=== PATIENT | female | born 1945 | race Caucasian/White ===

== ENCOUNTER → 2016-05-29 | Outpatient (CLI) | payer MEDICARE, BC, OTHER ==
[~2016-05-29] MED LIST: /PANT40TA OR; ASPI81TA3 OR; AVAP75TA PO; BENA25CA2 PO; CALCCHW12 OR; CARB1TAB20 PO; COLA100C2 OR; FERR325T3 PO; FLON0.05; FURO20TA2 PO; KLOR10TA OR; LASI20TA OR; MULTIVIT PO; OMEP40CA2 PO; VIT D 2000 PO; VITA100027 OR; XANA0.5T PO
--- NOTE | 2016-05-29 22:13 | REP ---
MR THORACIC SPINE WITHOUT CONTRAST: HISTORY: Back pain. A small right paracentral disc protrusion is present at the T3-4 level. There is minimal effacement of the thecal sac without spinal cord compression. The T3 neural foramina are patent. A small central disc extrusion is present at the T6-7 level. There is minimal deformity of the spinal cord. The T6 neural foramina are patent. A mild size central disc extrusion is present at the T7-8 level. There is superior migration of disc material. There is minimal deformity of the spinal cord. The T7 neural foramina are patent. There is no other disc bulge or herniation. The remaining neural foramina are patent. The spinal cord is normal in signal intensity. There is no intradural extramedullary lesion. Normal signal intensity is present at the thoracic vertebral bodies. Anterior osteophytes are present throughout the thoracic spine. IMPRESSION: 1. Small disc protrusion at the T3-4 level without spinal cord compression. 2. Small disc extrusion at the T6-7 level with minimal deformity of the spinal cord. 3. Mild size central disc extrusion at the T7-8 level with minimal deformity of the spinal cord. Signed by Anrde Grant MD 05/30/2016 08:54 A
== END | disposition home or self-care (01) ==
LOC: M RAD 13:17
PROVIDERS: ATTEND Physician Assistant Medical
DX: M54.9 Dorsalgia, unspecified (principal); M51.04 Intervertebral disc disorders with myelopathy, thoracic region

== ENCOUNTER 2016-07-23 02:42 | Emergency (ER) | payer MEDICARE, BC, OTHER ==
[2016-07-23] MEDS ORDERED: dexameTHASONE 20 MG/5 ML VIAL (J1100) As Ordered ONE (03:15)
[2016-07-23] MEDS ORDERED: KETOROLAC 30 MG/ML VIAL (J1885) As Ordered ONE (03:16)
[2016-07-23] MEDS ORDERED: IPRATROPIUM 0.5MG/ALBUTEROL 2.5MG INH SOL UD 3ML (DUONEB)(J7620) As Ordered ONE (03:19)
--- NOTE | 2016-07-23 05:29 | EDDOCDS ---
Nurse's Notes [facility] Name: Kristan Sierra Age: 70 yrs Sex: Female : 1945 Arrival Date: 07/23/2016 Time: 02:42 Bed 12 Private MD: Diagnosis: Acute upper respiratory infection, unspecified-Viral;Chondrocostal junction syndrome [Tietze] Presentation: 07/23 02:48 Presenting complaint: Patient states: she has had ongoing issues with back and chest cz discomfort. pain worsening since last night around 1800 pt states it hurts to take a deep breath. pt and spouse relate that when she eats she swells up putting pressure on her chest. Aspirin was not taken prior to arrival. Adult Sepsis Screening: The patient does not have new or worsening altered mentation. Patient's respiratory rate is less than 22. Systolic blood pressure is greater than 100. Patient has a qSOFA score of 0- Negative Sepsis Screen. Suicide/Homicide risk assessment- the patient denies having any suicidal and/or homicidal ideations and does not present with any other emotional, behavioral or mental health complaints. Status: Patient is not a financial services sales representative or dependent. Transition of care: patient was not received from another setting of care. 02:48 Acuity: CHACE Level 2 cz 02:48 Method Of Arrival: Wheelchair cz Triage Assessment: 02:52 General: Appears uncomfortable. Pain: Location: back and chest Pain currently is 8 out cz of 10 on a pain scale. Historical: - Allergies: No known drug Allergies; - Home Meds: 1. unable to verify - PMHx: back pain; Colitis; Asthma; CHF; - PSHx: eye surgery; Cholecystectomy; Gastric Bypass; Hysterectomy; - Social history: Smoking status: Patient states former smoker of tobacco. No barriers to communication noted, The patient speaks fluent Georgian, Speaks appropriately for age. - Family history: Not pertinent. - : Unable to assess if pt is on anticoagulants. Unable to Verify Home Med List with the patient / caregiver. - Exposure Risk Screening:: None identified. Screenin:08 Screening information is obtained from the patient. Fall risk: No risks identified. mlc Assistance ADL's: requires no assistance with activities of daily living. Abuse/DV Screen: The patient / caregiver reports he/she is: not in a situation that causes fear, pain or injury. Nutritional screening: No deficits noted. Advance Directives: Currently, there is a health care proxy, Nadine Brantley, daughter. There is an active DNR order but there is no copy available at this time. There is an active Power of Mechanical Developer [employer]ver, Nadine Brantley, daughter. home support is adequate. Assessment: 03:08 General: Appears in no apparent distress, uncomfortable, Behavior is anxious, mlc cooperative. Pain: Location: low back area and left breast Pain currently is 8 out of 10 on a pain scale. Neurological: Level of Consciousness is awake, alert, Oriented to person, place, time. Cardiovascular: Capillary refill < 3 seconds Heart tones S1 S2 present Rhythm is regular. Respiratory: Airway is patent Respiratory effort is even, labored, Respiratory pattern is regular, Breath sounds with wheezes expiratory in left posterior lower lobe and right posterior lower lobe Reports shortness of breath at rest. Derm: Skin is pink, warm & dry. 03:24 GI: Reports gaseousness, pt belching as if she might vomit but patient states she does mlc this all the time and that she does not vomit. 04:30 General: Appears in no apparent distress, comfortable, Behavior is appropriate for age, js15 cooperative. Neurological: Level of Consciousness is awake, alert, obeys commands, Oriented to person, place, time. Respiratory: Airway is patent Respiratory effort is even, unlabored, Respiratory pattern is regular, symmetrical. Derm: Skin is pink, warm & dry. 05:27 Reassessment: Patient appears in no apparent distress at this time. Pt ambulated js15 independently to restroom and back to bed; resting on stretcher, awake and alert; respirations even and unlabored; skin pink, warm, dry; cardiac rhythm is NSR. Vital Signs: 02:52 BP 141 / 80; Pulse 80; Resp 16; Pulse Ox 96% on R/A; Weight 77.11 kg; Height 5 ft. 3 cz in. (160.02 cm); 02:53 BP 141 / 80; Pulse 78; Resp 20; Temp 98.1; Pulse Ox 96% on R/A; Pain 8/10; mlc 05:13 BP 128 / 56 RA Supine (auto/reg); Pulse 89 MON; Resp 18 S; Temp 98.8(TE); Pulse Ox 93% cln on R/A; Pain 5/10; 02:52 Body Mass Index 30.11 (77.11 kg, 160.02 cm) Vitals: 02:52 Log In Time: July 23, 2016 at 02:53. ED Course: 02:43 Patient visited by Kelli Bourgeois Reg. hs2 02:43 Patient moved to Waiting hs2 02:47 Danelle Harmon RN is Primary Nurse. cz 02:47 Yogesh De Jesus DO is Attending Physician. cs11 02:47 Patient visited by Yogesh De Jesus DO. cs11 02:47 Patient moved to cz 02:50 Triage Initiated cz 03:02 Pt greeted and oriented to ED. Patient advised of names of staff involved in care, mikael location of call caball[place], wait times and NPO status. Accompanied by Significant Other, Patient has correct armband on for positive identification. Placed in gown. Bed in low position. Call light in reach. Side rails up X2. assistant men's soccer coach on. Pulse ox on. NIBP on. 03:02 EKG done. (by ED staff). Reviewed by Yogesh De Jesus DO. mikael 03:04 Inserted saline lock: 18 gauge in right antecubital area and blood collected. [facility] [place] tolerated the procedure well. 03:07 [facility] Payment Agreement was scanned into [employer] and attached to record. [facility] 03:10 Patient visited by Danelle Harmon RN. [facility] 03:24 Patient visited by Danelle Harmon RN. [facility] 04:00 Primary Nurse role handed off by Danelle Harmon RN mikael 04:01 Patient moved to Radiology tmb 04:16 Patient moved to tmb 04:30 The patient / caregiver is instructed regarding the plan of care and ED course. js15 04:35 Patient visited by Rossana Burton RN. js15 04:35 -Influenza A&B Rapid Antigen - Nose Sent. js15 05:14 Patient visited by Georgette Son PCA. cln 05:27 Discontinued IV lock intact, bleeding controlled, pressure dressing applied, No js15 redness/swelling at site. No procedures done that require assistance. Administered Medications: 03:05 Drug: Albuterol-Ipratropium 1 neb [ipratropium-albuterol 0.5 mg-3 mg(2.5 mg base)/3 mL nk1 nebulization soln (1 neb)] Route: Nebulizer; 03:18 Drug: Albuterol-Ipratropium 1 neb [ipratropium-albuterol 0.5 mg-3 mg(2.5 mg base)/3 mL nk1 nebulization soln (1 neb)] Route: Nebulizer; 03:36 Follow up: Response: Nebulizer completed nk1 03:55 Follow up: Response: Nebulizer completed nk1 03:23 Drug: ketorolac 30 mg [ketorolac 30 mg/mL (1 mL) injection solution (1 mL)] Route: IVP; mlc Site: right antecubital; 03:23 Drug: Dexamethasone 12 mg [dexamethasone 4 mg/mL injection solution] Route: IV; Rate: mlc bolus; Site: right antecubital; RT: 03:25 Initial Med Neb Given as ordered Patient was instructed and evaluated on procedure nk1 Patient tolerated procedure well without adverse effect. Respiratory: Airway is patent Respiratory effort is even, unlabored, Respiratory pattern is regular symmetrical, Breath sounds are clear bilaterally. Breath sounds are diminished bilaterally. in left posterior lower lobe and right posterior lower lobe Reports cough that is productive labored breathing with pain associated with deep breathing. Patient complains of generalized chest tightness. 03:40 Subsequent Med Neb Given as ordered Patient tolerated procedure well without adverse nk1 effect. 03:54 Respiratory: Breath sounds are clear bilaterally. Reports no change with second neb, nk1 declined third neb treatment. Order Results: Lab Order: -Influenza A&B Rapid Antigen - Nose; SPEC'M 07/23/16 04:34 Test: INFLUENZA A RAPID SCR by ICA; Value: INFLUENZA A RESULTS NEGATIVE; Status: F Test: INFLUENZA A RAPID SCR by ICA; Value: Comments:; Status: F Test: INFLUENZA B RAPID SCR by ICA; Value: INFLUENZA B RESULTS NEGATIVE; Status: F Test Note: ; The Influenza test is a direct rapid immunoassay for the qualitative detection of Influenza viral antigen. Cell culture (Viral Culture) testing should be considered to confirm NEGATIVE results and to assist in detecting other viruses that can provide similar clinical symptoms. Please contact the lab within 24 hours ([phone]) if confirmatory testing is desired. Outcome: 05:07 Discharge ordered by Provider. cs11 05:27 Discharge Assessment: Patient awake, alert and oriented x 3. No cognitive and/or js15 functional deficits noted. Patient verbalized understanding of disposition instructions. The following High Risk Discharge criteria are identified: None. Discharged to home ambulatory, with significant other. Condition: stable. Discharge instructions given to patient, Instructed on discharge instructions, follow up and referral plans. Demonstrated understanding of instructions, Pt was receptive of discharge instructions/ teaching. Property sent home with patient. 05:28 Discharge Assessment: patient administered narcotics - no. No special radiology studies js15 were completed. 05:29 Patient left the ED. js15 Signatures: Griffin Gongora, RN RN cz Mulu Obrien,RT RT nk1 Ching Fuentes, ORCHID HAND ORCHID HAND mikael Yogesh De Jesus, DO DO cs11 Ranulfo Hunter tmb Danelle Harmon,RN RN mlc Saranya Kingsley JuliaRN RN js15 Kelli Bourgeois, Reg Reg hs2 Georgette Son, ORCHID HAND ORCHID HAND cln Corrections: (The following items were deleted from the chart) 02:57 02:48 Presenting complaint: Patient states: she has had ongoing issues with back and cz chest discomfort. pain worsenting since last night around 1800 pt states it hurts to take a deep breath. pt and spouse relate that when she eats she swells up putting pressure on her chesty cz 03:53 03:36 Respiratory: Breath sounds are clear bilaterally. No significant change in breath nk1 sounds. Patient states she feels no change. Sates she feels a localized pain over left anterior chest worse with deep breathing. nk1 03:54 03:05 Subsequent Med Neb Given as ordered Patient tolerated procedure well without nk1 adverse effect nk1 MTDD
--- NOTE | 2016-07-23 05:29 | EDDOCDS ---
Physician Documentation [facility] Name: Kristan Sierra Age: 70 yrs Sex: Female : 1945 Arrival Date: 07/23/2016 Time: 02:42 Bed 12 Private MD: Disposition: 07/23/16 05:07 Discharged to Home/Self Care. Impression: Acute upper respiratory infection, unspecified - Viral, Chondrocostal junction syndrome [Tietze]. - Condition is Stable. - Discharge Instructions: Costochondritis, [id number]. - Prescriptions for Prednisone 20 mg Oral Tablet - take 2 tablets by ORAL route once daily for 4 days; 8 tablet. - Medication Reconciliation, Local Pharmacy Hours form. - Follow up: Private Physician; When: Call to arrange an appointment; Reason: Recheck today's complaints. - Problem is new. - Symptoms have improved. Historical: - Allergies: No known drug Allergies; - Home Meds: 1. unable to verify - PMHx: back pain; Colitis; Asthma; CHF; - PSHx: eye surgery; Cholecystectomy; Gastric Bypass; Hysterectomy; - Social history: Smoking status: Patient states former smoker of tobacco. No barriers to communication noted, The patient speaks fluent Malay, Speaks appropriately for age. - Family history: Not pertinent. - : Unable to assess if pt is on anticoagulants. Unable to Verify Home Med List with the patient / caregiver. - Exposure Risk Screening:: None identified. Vital Signs: 07/23 02:52 BP 141 / 80; Pulse 80; Resp 16; Pulse Ox 96% on R/A; Weight 77.11 kg / 170 lbs; Height cz 5 ft. 3 in. (160.02 cm); 02:53 BP 141 / 80; Pulse 78; Resp 20; Temp 98.1; Pulse Ox 96% on R/A; Pain 8/10; mlc 05:13 BP 128 / 56 RA Supine (auto/reg); Pulse 89 MON; Resp 18 S; Temp 98.8(TE); Pulse Ox 93% cln on R/A; Pain 5/10; 02:52 Body Mass Index 30.11 (77.11 kg, 160.02 cm) cz MDM: 02:54 ECG WITH READING ER PHYS+CARDIAG ordered. EDMS 03:03 Financial registration complete. [facility] 03:07 [facility] Payment Agreement was scanned into [employer] and attached to record. [facility] 03:14 ketorolac 30 mg IVP once ordered. 11 03:14 Dexamethasone 12 mg IV at bolus once ordered. cs11 03:14 Albuterol-Ipratropium 1 neb Nebulizer every 20 minutes x3 ordered. cs11 03:14 Call Respiratory ordered. cs11 03:15 Chest, 2 View (pa\E\lat) Ordered. EDMS 03:15 Call Respiratory complete. ko2 03:58 -Influenza A&B Rapid Antigen - Nose Ordered. EDMS Administered Medications: 03:05 Drug: Albuterol-Ipratropium 1 neb [ipratropium-albuterol 0.5 mg-3 mg(2.5 mg base)/3 mL nk1 nebulization soln (1 neb)] Route: Nebulizer; 03:18 Drug: Albuterol-Ipratropium 1 neb [ipratropium-albuterol 0.5 mg-3 mg(2.5 mg base)/3 mL nk1 nebulization soln (1 neb)] Route: Nebulizer; 03:36 Follow up: Response: Nebulizer completed nk1 03:55 Follow up: Response: Nebulizer completed nk1 03:23 Drug: ketorolac 30 mg [ketorolac 30 mg/mL (1 mL) injection solution (1 mL)] Route: IVP; mlc Site: right antecubital; 03:23 Drug: Dexamethasone 12 mg [dexamethasone 4 mg/mL injection solution] Route: IV; Rate: mlc bolus; Site: right antecubital; Signatures: Dispatcher [employer] EDNH Griffin Gongora RN RN cz Schiff, Craig, DO DO cs11 Ashlie Villalta RN RN ko2 Saranya Kingsley [facility] Rossana Burton RN RN js15 Mulu Obrien nk1 Danelle Harmon RN mlc The chart was reviewed and I authenticate all verbal orders and agree with the evaluation and treatment provided.Attachments: 03:07 [facility] Payment Agreement [facility] MTDD
--- NOTE | 2016-07-23 10:36 | REP ---
CHEST X-RAY: Two views. HISTORY: Cough. FINDINGS: EKG monitoring electrodes overlie the chest. There are clips in the right upper quadrant. Pleural angles are sharp. The lungs are well inflated and clear. Heart size is normal. There are degenerative changes in the thoracic spine. Pulmonary vasculature is not increased. IMPRESSION: No active disease. Signed by Mark Crook MD 07/23/2016 01:59 P
--- NOTE | 2016-07-24 10:10 | ECGEPIP ---
Stationary ECG Study [facility] - ED Test Date: 2016-07-23 Pat Name: CINTHYA RIZO Department: Room: - Gender: F Parts Counter Specialist: GarciaB: 1945 Requested By: FANY ZHONG Order Number: [id number] Reading MD: Angus Ruffin Measurements Intervals [place] Rate: 77 P: 75 SC: 224 QRS: -21 QRSD: 91 T: 3 QT: 398 QTc: 451 Interpretive Statements SINUS RHYTHM WITH FIRST DEGREE AV BLOCK POSSIBLE ANTERIOR MYOCARDIAL INFARCTION, OF INDETERMINATE AGE NO PRIORS Electronically Signed On 07-24-2016 10:09:45 EST by Angus Ruffin
--- NOTE | 2016-07-25 06:29 | EDDOCDS ---
Physician Documentation [facility] Name: Kristan Sierra Age: 70 yrs Sex: Female : 1945 Arrival Date: 07/23/2016 Time: 02:42 Bed 12 Private MD: Disposition: 07/23/16 05:07 Discharged to Home/Self Care. Impression: Acute upper respiratory infection, unspecified - Viral, Chondrocostal junction syndrome [Tietze]. - Condition is Stable. - Discharge Instructions: Costochondritis, [id number]. - Prescriptions for Prednisone 20 mg Oral Tablet - take 2 tablets by ORAL route once daily for 4 days; 8 tablet. - Medication Reconciliation, Local Pharmacy Hours form. - Follow up: Private Physician; When: Call to arrange an appointment; Reason: Recheck today's complaints. - Problem is new. - Symptoms have improved. Historical: - Allergies: No known drug Allergies; - Home Meds: 1. unable to verify - PMHx: back pain; Colitis; Asthma; CHF; - PSHx: eye surgery; Cholecystectomy; Gastric Bypass; Hysterectomy; - Social history: Smoking status: Patient states former smoker of tobacco. No barriers to communication noted, The patient speaks fluent Spanish, Speaks appropriately for age. - Family history: Not pertinent. - : Unable to assess if pt is on anticoagulants. Unable to Verify Home Med List with the patient / caregiver. - Exposure Risk Screening:: None identified. Vital Signs: 07/23 02:52 BP 141 / 80; Pulse 80; Resp 16; Pulse Ox 96% on R/A; Weight 77.11 kg / 170 lbs; Height cz 5 ft. 3 in. (160.02 cm); 02:53 BP 141 / 80; Pulse 78; Resp 20; Temp 98.1; Pulse Ox 96% on R/A; Pain 8/10; mlc 05:13 BP 128 / 56 RA Supine (auto/reg); Pulse 89 MON; Resp 18 S; Temp 98.8(TE); Pulse Ox 93% cln on R/A; Pain 5/10; 02:52 Body Mass Index 30.11 (77.11 kg, 160.02 cm) cz MDM: 02:54 ECG WITH READING ER PHYS+CARDIAG ordered. EDMS 03:03 Financial registration complete. [facility] 03:07 [facility] Payment Agreement was scanned into [employer]. and attached to record. [facility] 03:14 ketorolac 30 mg IVP once ordered. 11 03:14 Dexamethasone 12 mg IV at bolus once ordered. cs11 03:14 Albuterol-Ipratropium 1 neb Nebulizer every 20 minutes x3 ordered. cs11 03:14 Call Respiratory ordered. cs11 03:15 Chest, 2 View (pa\E\lat) Ordered. EDMS 03:15 Call Respiratory complete. ko2 03:58 -Influenza A&B Rapid Antigen - Nose Ordered. EDMS Administered Medications: 03:05 Drug: Albuterol-Ipratropium 1 neb [ipratropium-albuterol 0.5 mg-3 mg(2.5 mg base)/3 mL nk1 nebulization soln (1 neb)] Route: Nebulizer; 03:18 Drug: Albuterol-Ipratropium 1 neb [ipratropium-albuterol 0.5 mg-3 mg(2.5 mg base)/3 mL nk1 nebulization soln (1 neb)] Route: Nebulizer; 03:36 Follow up: Response: Nebulizer completed nk1 03:55 Follow up: Response: Nebulizer completed nk1 03:23 Drug: ketorolac 30 mg [ketorolac 30 mg/mL (1 mL) injection solution (1 mL)] Route: IVP; mlc Site: right antecubital; 03:23 Drug: Dexamethasone 12 mg [dexamethasone 4 mg/mL injection solution] Route: IV; Rate: mlc bolus; Site: right antecubital; Signatures: Dispatcher MedHo EDMA Griffin Gongora RN RN cz Schiff, Craig, DO DO cs11 Ashlie Villalta RN RN ko2 Saranya Kingsley [facility] Rossana Burton RN RN js15 Mulu Obrien nk1 Danelle Harmon RN mlc The chart was reviewed and I authenticate all verbal orders and agree with the evaluation and treatment provided.Attachments: 03:07 [facility] Payment Agreement [facility] Chart Complete MTDD
--- NOTE | 2016-07-25 06:29 | EDDOCDS ---
Physician Documentation [facility] Name: Kristan Sierra Age: 70 yrs Sex: Female : 1945 Arrival Date: 07/23/2016 Time: 02:42 Bed 12 Private MD: Disposition: 07/23/16 05:07 Discharged to Home/Self Care. Impression: Acute upper respiratory infection, unspecified - Viral, Chondrocostal junction syndrome [Tietze]. - Condition is Stable. - Discharge Instructions: Costochondritis, [id number]. - Prescriptions for Prednisone 20 mg Oral Tablet - take 2 tablets by ORAL route once daily for 4 days; 8 tablet. - Medication Reconciliation, Local Pharmacy Hours form. - Follow up: Private Physician; When: Call to arrange an appointment; Reason: Recheck today's complaints. - Problem is new. - Symptoms have improved. Historical: - Allergies: No known drug Allergies; - Home Meds: 1. unable to verify - PMHx: back pain; Colitis; Asthma; CHF; - PSHx: eye surgery; Cholecystectomy; Gastric Bypass; Hysterectomy; - Social history: Smoking status: Patient states former smoker of tobacco. No barriers to communication noted, The patient speaks fluent Kyrgyz, Speaks appropriately for age. - Family history: Not pertinent. - : Unable to assess if pt is on anticoagulants. Unable to Verify Home Med List with the patient / caregiver. - Exposure Risk Screening:: None identified. Vital Signs: 07/23 02:52 BP 141 / 80; Pulse 80; Resp 16; Pulse Ox 96% on R/A; Weight 77.11 kg / 170 lbs; Height cz 5 ft. 3 in. (160.02 cm); 02:53 BP 141 / 80; Pulse 78; Resp 20; Temp 98.1; Pulse Ox 96% on R/A; Pain 8/10; mlc 05:13 BP 128 / 56 RA Supine (auto/reg); Pulse 89 MON; Resp 18 S; Temp 98.8(TE); Pulse Ox 93% cln on R/A; Pain 5/10; 02:52 Body Mass Index 30.11 (77.11 kg, 160.02 cm) cz MDM: 02:54 ECG WITH READING ER PHYS+CARDIAG ordered. EDMS 03:03 Financial registration complete. [facility] 03:07 [facility] Payment Agreement was scanned into [employer] and attached to record. [facility] 03:14 ketorolac 30 mg IVP once ordered. 11 03:14 Dexamethasone 12 mg IV at bolus once ordered. cs11 03:14 Albuterol-Ipratropium 1 neb Nebulizer every 20 minutes x3 ordered. cs11 03:14 Call Respiratory ordered. cs11 03:15 Chest, 2 View (pa\E\lat) Ordered. EDMS 03:15 Call Respiratory complete. ko2 03:58 -Influenza A&B Rapid Antigen - Nose Ordered. EDMS Administered Medications: 03:05 Drug: Albuterol-Ipratropium 1 neb [ipratropium-albuterol 0.5 mg-3 mg(2.5 mg base)/3 mL nk1 nebulization soln (1 neb)] Route: Nebulizer; 03:18 Drug: Albuterol-Ipratropium 1 neb [ipratropium-albuterol 0.5 mg-3 mg(2.5 mg base)/3 mL nk1 nebulization soln (1 neb)] Route: Nebulizer; 03:36 Follow up: Response: Nebulizer completed nk1 03:55 Follow up: Response: Nebulizer completed nk1 03:23 Drug: ketorolac 30 mg [ketorolac 30 mg/mL (1 mL) injection solution (1 mL)] Route: IVP; mlc Site: right antecubital; 03:23 Drug: Dexamethasone 12 mg [dexamethasone 4 mg/mL injection solution] Route: IV; Rate: mlc bolus; Site: right antecubital; Signatures: Dispatcher MedHo EDMD Griffin Gongora RN RN cz Schiff, Craig, DO DO cs11 Ashlie Villalta RN RN ko2 Saranya Kingsley [facility] Rossana Burton RN RN js15 Mulu Obrien nk1 Danelle Harmon RN mlc The chart was reviewed and I authenticate all verbal orders and agree with the evaluation and treatment provided.Attachments: 03:07 [facility] Payment Agreement [facility] Chart Complete MTDD
--- NOTE | 2016-07-25 06:30 | EDDOCDS ---
Nurse's Notes [facility] Name: Cinthya Sierra Age: 70 yrs Sex: Female : 1945 Arrival Date: 07/23/2016 Time: 02:42 Bed 12 Private MD: Diagnosis: Acute upper respiratory infection, unspecified-Viral;Chondrocostal junction syndrome [Tietze] Presentation: 07/23 02:48 Presenting complaint: Patient states: she has had ongoing issues with back and chest cz discomfort. pain worsening since last night around 1800 pt states it hurts to take a deep breath. pt and spouse relate that when she eats she swells up putting pressure on her chest. Aspirin was not taken prior to arrival. Adult Sepsis Screening: The patient does not have new or worsening altered mentation. Patient's respiratory rate is less than 22. Systolic blood pressure is greater than 100. Patient has a qSOFA score of 0- Negative Sepsis Screen. Suicide/Homicide risk assessment- the patient denies having any suicidal and/or homicidal ideations and does not present with any other emotional, behavioral or mental health complaints. Status: Patient is not a animal care service worker or dependent. Transition of care: patient was not received from another setting of care. 02:48 Acuity: CHACE Level 2 cz 02:48 Method Of Arrival: Wheelchair cz Triage Assessment: 02:52 General: Appears uncomfortable. Pain: Location: back and chest Pain currently is 8 out cz of 10 on a pain scale. Historical: - Allergies: No known drug Allergies; - Home Meds: 1. unable to verify - PMHx: back pain; Colitis; Asthma; CHF; - PSHx: eye surgery; Cholecystectomy; Gastric Bypass; Hysterectomy; - Social history: Smoking status: Patient states former smoker of tobacco. No barriers to communication noted, The patient speaks fluent Georgian, Speaks appropriately for age. - Family history: Not pertinent. - : Unable to assess if pt is on anticoagulants. Unable to Verify Home Med List with the patient / caregiver. - Exposure Risk Screening:: None identified. Screenin:08 Screening information is obtained from the patient. Fall risk: No risks identified. mlc Assistance ADL's: requires no assistance with activities of daily living. Abuse/DV Screen: The patient / caregiver reports he/she is: not in a situation that causes fear, pain or injury. Nutritional screening: No deficits noted. Advance Directives: Currently, there is a health care proxy, Nadine Brantley, daughter. There is an active DNR order but there is no copy available at this time. There is an active Power of Employee Communications Coordinator, Nadine Brantley, daughter. home support is adequate. Assessment: 03:08 General: Appears in no apparent distress, uncomfortable, Behavior is anxious, mlc cooperative. Pain: Location: low back area and left breast Pain currently is 8 out of 10 on a pain scale. Neurological: Level of Consciousness is awake, alert, Oriented to person, place, time. Cardiovascular: Capillary refill < 3 seconds Heart tones S1 S2 present Rhythm is regular. Respiratory: Airway is patent Respiratory effort is even, labored, Respiratory pattern is regular, Breath sounds with wheezes expiratory in left posterior lower lobe and right posterior lower lobe Reports shortness of breath at rest. Derm: Skin is pink, warm & dry. 03:24 GI: Reports gaseousness, pt belching as if she might vomit but patient states she does mlc this all the time and that she does not vomit. 04:30 General: Appears in no apparent distress, comfortable, Behavior is appropriate for age, js15 cooperative. Neurological: Level of Consciousness is awake, alert, obeys commands, Oriented to person, place, time. Respiratory: Airway is patent Respiratory effort is even, unlabored, Respiratory pattern is regular, symmetrical. Derm: Skin is pink, warm & dry. 05:27 Reassessment: Patient appears in no apparent distress at this time. Pt ambulated js15 independently to restroom and back to bed; resting on stretcher, awake and alert; respirations even and unlabored; skin pink, warm, dry; cardiac rhythm is NSR. Vital Signs: 02:52 BP 141 / 80; Pulse 80; Resp 16; Pulse Ox 96% on R/A; Weight 77.11 kg; Height 5 ft. 3 cz in. (160.02 cm); 02:53 BP 141 / 80; Pulse 78; Resp 20; Temp 98.1; Pulse Ox 96% on R/A; Pain 8/10; mlc 05:13 BP 128 / 56 RA Supine (auto/reg); Pulse 89 MON; Resp 18 S; Temp 98.8(TE); Pulse Ox 93% cln on R/A; Pain 5/10; 02:52 Body Mass Index 30.11 (77.11 kg, 160.02 cm) Vitals: 02:52 Log In Time: July 23, 2016 at 02:53. ED Course: 02:43 Patient visited by Kelli Bourgeois Reg. hs2 02:43 Patient moved to Waiting hs2 02:47 Danelle HarmonRN is Primary Nurse. cz 02:47 Fany Zhong DO is Attending Physician. cs11 02:47 Patient visited by Fany Zhong DO. cs11 02:47 Patient moved to cz 02:50 Triage Initiated cz 03:02 Pt greeted and oriented to ED. Patient advised of names of staff involved in care, mikael location of call [place], wait times and NPO status. Accompanied by Significant Other, Patient has correct armband on for positive identification. Placed in gown. Bed in low position. Call light in reach. Side rails up X2. monitor tech on. Pulse ox on. NIBP on. 03:02 EKG done. (by ED staff). Reviewed by Fany Zhong DO. mikael 03:04 Inserted saline lock: 18 gauge in right antecubital area and blood collected. The [facility] patient tolerated the procedure well. 03:07 [facility] Payment Agreement was scanned into [employer] and attached to record. [facility] 03:10 Patient visited by Danelle Harmon RN. [facility] 03:24 Patient visited by Danelle Harmon RN. [facility] 04:00 Primary Nurse role handed off by Danelle Harmon RN mikael 04:01 Patient moved to Radiology tmb 04:16 Patient moved to tmb 04:30 The patient / caregiver is instructed regarding the plan of care and ED course. js15 04:35 Patient visited by Rossana Burton,ZEHRA. js15 04:35 -Influenza A&B Rapid Antigen - Nose Sent. js15 05:14 Patient visited by Georgette Son PCA. cln 05:27 Discontinued IV lock intact, bleeding controlled, pressure dressing applied, No js15 redness/swelling at site. No procedures done that require assistance. 10:43 Chest, 2 View (pa\E\lat) Returned. EDMS 07/24 10:45 EKG-ADULT Returned. EDMS Administered Medications: 07/23 03:05 Drug: Albuterol-Ipratropium 1 neb [ipratropium-albuterol 0.5 mg-3 mg(2.5 mg base)/3 mL nk1 nebulization soln (1 neb)] Route: Nebulizer; 03:18 Drug: Albuterol-Ipratropium 1 neb [ipratropium-albuterol 0.5 mg-3 mg(2.5 mg base)/3 mL nk1 nebulization soln (1 neb)] Route: Nebulizer; 03:36 Follow up: Response: Nebulizer completed nk1 03:55 Follow up: Response: Nebulizer completed nk1 03:23 Drug: ketorolac 30 mg [ketorolac 30 mg/mL (1 mL) injection solution (1 mL)] Route: IVP; mlc Site: right antecubital; 03:23 Drug: Dexamethasone 12 mg [dexamethasone 4 mg/mL injection solution] Route: IV; Rate: mlc bolus; Site: right antecubital; RT: 03:25 Initial Med Neb Given as ordered Patient was instructed and evaluated on procedure nk1 Patient tolerated procedure well without adverse effect. Respiratory: Airway is patent Respiratory effort is even, unlabored, Respiratory pattern is regular symmetrical, Breath sounds are clear bilaterally. Breath sounds are diminished bilaterally. in left posterior lower lobe and right posterior lower lobe Reports cough that is productive labored breathing with pain associated with deep breathing. Patient complains of generalized chest tightness. 03:40 Subsequent Med Neb Given as ordered Patient tolerated procedure well without adverse nk1 effect. 03:54 Respiratory: Breath sounds are clear bilaterally. Reports no change with second neb, nk1 declined third neb treatment. Order Results: Lab Order: -Influenza A&B Rapid Antigen - Nose; SPEC'M 07/23/16 04:34 Test: INFLUENZA A RAPID SCR by ICA; Value: INFLUENZA A RESULTS NEGATIVE; Status: F Test: INFLUENZA A RAPID SCR by ICA; Value: Comments:; Status: F Test: INFLUENZA B RAPID SCR by ICA; Value: INFLUENZA B RESULTS NEGATIVE; Status: F Test Note: ; The Influenza test is a direct rapid immunoassay for the qualitative detection of Influenza viral antigen. Cell culture (Viral Culture) testing should be considered to confirm NEGATIVE results and to assist in detecting other viruses that can provide similar clinical symptoms. Please contact the lab within 24 hours ([phone]) if confirmatory testing is desired. Radiology Order: EKG-ADULT Test: EKG-ADULT REASON FOR EXAMINATION: Chest Pain; Stationary ECG Study; [facility] - ED; ; Test Date: 2016-07-23; Pat Name: CINTHYA SIERRA Department:; Room: -; Gender: F Buggy Ladle Tender: tonya; : 1945 Requested By: FANY ZHONG; Order Number: [id number] Reading MD: Angus Ruffin; Measurements; Intervals [place]; Rate: 77 P: 75; IN: 224 QRS: -21; QRSD: 91 T: 3; QT: 398; QTc: 451; Interpretive Statements; SINUS RHYTHM WITH FIRST DEGREE AV BLOCK; POSSIBLE ANTERIOR MYOCARDIAL INFARCTION, OF INDETERMINATE AGE; NO PRIORS; Electronically Signed On 07-24-2016 10:09:45 EST by Angus Ruffin; Radiology Order: Chest, 2 View (pa\E\lat) Test: Chest, 2 View (pa\E\lat) REASON FOR EXAMINATION: Cough; CHEST X-RAY: Two views.; ; HISTORY: Cough.; ; FINDINGS: EKG monitoring electrodes overlie the chest. There are clips in the; right upper quadrant. Pleural angles are sharp. The lungs are well inflated and; clear. Heart size is normal. There are degenerative changes in the thoracic; spine. Pulmonary vasculature is not increased.; ; IMPRESSION: No active disease.; ; ; Signed by; Mark Crook MD 07/23/2016 01:59 P; Outcome: 05:07 Discharge ordered by Provider. cs11 05:27 Discharge Assessment: Patient awake, alert and oriented x 3. No cognitive and/or js15 functional deficits noted. Patient verbalized understanding of disposition instructions. The following High Risk Discharge criteria are identified: None. Discharged to home ambulatory, with significant other. Condition: stable. Discharge instructions given to patient, Instructed on discharge instructions, follow up and referral plans. Demonstrated understanding of instructions, Pt was receptive of discharge instructions/ teaching. Property sent home with patient. 05:28 Discharge Assessment: patient administered narcotics - no. No special radiology studies js15 were completed. 05:29 Patient left the ED. js15 Signatures: Dispatcher [employer] EDMS Griffin Gongora, ZEHRA RN cz Mulu Obrien,RT RT nk1 Ching Fuentes, INTERLOCKING MACHINE OPERATOR INTERLOCKING MACHINE OPERATOR Fany Angulo DO DO cs11 Ranulfo Hunter Mandy,RN RN Saranya Parikh Rossana Sotelo RN RN js15 Kelli Bourgeois, Reg Reg hs2 Georgette Son, INTERLOCKING MACHINE OPERATOR INTERLOCKING MACHINE OPERATOR cln Corrections: (The following items were deleted from the chart) 02:57 02:48 Presenting complaint: Patient states: she has had ongoing issues with back and cz chest discomfort. pain worsenting since last night around 1800 pt states it hurts to take a deep breath. pt and spouse relate that when she eats she swells up putting pressure on her chesty cz 03:53 03:36 Respiratory: Breath sounds are clear bilaterally. No significant change in breath nk1 sounds. Patient states she feels no change. Sates she feels a localized pain over left anterior chest worse with deep breathing. nk1 03:54 03:05 Subsequent Med Neb Given as ordered Patient tolerated procedure well without nk1 adverse effect nk1 Chart Complete MTDD
== END 2016-07-23 05:29 | disposition home or self-care (01) ==
LOC: M ED 02:42
DX: J06.9 Acute upper respiratory infection, unspecified (principal); M94.0 Chondrocostal junction syndrome [Tietze]; J45.909 Unspecified asthma, uncomplicated; M54.9 Dorsalgia, unspecified
CPT/HCPCS: 36415; 71020; 87804; 93005; 94640; 96374; 96375; 99284; J1100; J1885

== ENCOUNTER → 2016-07-25 | Outpatient (REF) | payer MEDICARE, OTHER ==
[2016-07-25 12:04] LABS: BASO % 0.7 % (0.0-1.0); EOS # 0.2 K/mm3 (0.0-0.50); EOS % 2.7 % (0.0-3.0); LARGE UNSTAINED CELL # 0.2 K/mm3 (0.0-0.4); LARGE UNSTAINED CELL % 2.7 % (0.0-4.0); LYMPH # 2.2 K/mm3 (1.5-4.5); LYMPH % 30.7 % (24.0-44.0); MEAN CORPUSCULAR HGB CONC 32.8 g/dl (32.0-36.5); MEAN CORPUSCULAR VOLUME 100.5 fl (80.0-96.0); MONO # 0.5 K/mm3 (0.0-0.8); MONO % 6.3 % (0.0-5.0); NEUTROPHILS # 4.1 K/mm3 (1.8-7.7); NEUTROPHILS % 56.8 % (36.0-66.0); PLATELET COUNT, AUTOMATED 144 k/mm3 (150-450); RED CELL DISTRIBUTION WIDTH 12.2 % (11.5-14.5); WHITE BLOOD COUNT 7.2 K/mm3 (4.0-10.0)
[2016-07-25 12:40] LABS: ERYTHROCYTE SEDIMENTATION RATE 13 mm/hr (0-30)
== END ==
LOC: M SFHCPLAZ 08:04
PROVIDERS: ATTEND Physician Assistant Medical
DX: K52.9 Noninfective gastroenteritis and colitis, unspecified (principal)

== ENCOUNTER → 2016-07-26 | Outpatient (REF) | payer MEDICARE, OTHER | LOC: M SFHCPLAZ 14:07 | PROVIDERS: ATTEND Family Medicine | DX: R19.7 Diarrhea, unspecified (principal) ==

== ENCOUNTER → 2016-09-02 | Outpatient (CLI) | payer MEDICARE, BC ==
[~2016-09-02] MED LIST changes: +AMIT10TA PO; +ASPI1TAB PO; +CALCTAB28 PO; +COLA100C3 PO; +DEXI60CA PO; +MULT1TAB9 PO; +POTA10CA PO; +RECL5INJ2 IV; +TRAM50TA2 PO; +VITA-112 PO; +VITAMIN B 12 PO
--- NOTE | 2016-09-03 10:15 | DEXA ---
AP SPINE L1 - L4 0.995 -1.6 -0.3 LT FEMUR TOTAL 0.807 -1.6 -0.4 RT FEMUR TOTAL 0.803 -1.6 -0.4 TOTAL BODY TOTAL OTHER DUAL FEMUR FRAX* ASSESSMENT Risk factors: Family history of hip fracture, history of adult fracture. 10 year probability of fracture Major osteoporotic fracture 29.4 % Hip fracture 6.3 % COMMENTS: There is low bone density of the spine and hips. The decreased density of the spine does represent a significant change. The decreased density of the left hip does represent a significant change. The decreased density of the right hip does not represent a significant change. The density of the spine has increased 5.5% since the initial exam on 06/2002. The spine density has decreased 6.1% since the most recent exam on 08/2014. The density of the left hip has decreased 15.6% since the initial exam on 2002. The density of the left hip has decreased 3.1% since the most recent exam on 2014. The density of the right hip has decreased 17.0% since the initial exam on 2002. The density of the right hip has decreased 0.6% since the most recent exam on 2014. FOLLOW-UP: Recommendation for the next bone density exam: 5 years. RODNEY
== END ==
LOC: M WHC 12:55
PROVIDERS: ATTEND Physician Assistant Medical
DX: M85.80 Other specified disorders of bone density and structure, unspecified site (principal); Z13.820 Encounter for screening for osteoporosis; M81.0 Age-related osteoporosis without current pathological fracture

== ENCOUNTER → 2016-09-10 | Outpatient (CLI) | payer MEDICARE, BC, OTHER ==
[~2016-09-10] VITALS: Ht 158.8 cm; Wt 74.8 kg
[~2016-09-10] MED LIST changes: +NS 1,000 ML IV SCH; +PROPOFOL 200 MG/20 ML VIAL As Ordered ONE
--- NOTE | 2016-09-10 12:20 | ROOR ---
Patient Name: Kristan Sierra Procedure Date: 09/10/2016 12:00 PM Date of : 1945 Age: 71 Room: [facility] Gender: Female Note Status: Finalized Procedure: Colonoscopy to Cecum Indications: Chronic diarrhea, Abnormal CT of the GI tract Providers: Wale Anderson MD Referring MD: Loco Winchester MD Requesting Provider: Medicines: Monitored Anesthesia Care Complications: No immediate complications. Procedure: Pre-Anesthesia Assessment: - The heart rate, respiratory rate, oxygen saturations, blood pressure, adequacy of pulmonary ventilation, and response to care were monitored throughout the procedure. The Colonoscope was introduced through the anus and advanced to the cecum, identified by appendiceal orifice and ileocecal valve. The colonoscopy was performed without difficulty. The patient tolerated the procedure well. The quality of the bowel preparation was excellent. Findings: The perianal and digital rectal examinations were normal. Non-bleeding internal hemorrhoids were found during retroflexion. The hemorrhoids were small and Grade I (internal hemorrhoids that do not prolapse). Multiple small and large-mouthed diverticula were found in the recto-sigmoid colon, sigmoid colon and descending colon. The exam was otherwise without abnormality on direct and retroflexion views. Impression: - Non-bleeding internal hemorrhoids. - Diverticulosis in the recto-sigmoid colon, in the sigmoid colon and in the descending colon. - The examination was otherwise normal on direct and retroflexion views. - No specimens collected. - The exam was otherwise normal to the cecum. Recommendation: - Patient has a contact number available for emergencies. The signs and symptoms of potential delayed complications were discussed with the patient. Return to normal activities tomorrow. Written discharge instructions were provided to the patient. - High fiber diet. - Discharge patient to home. - Continue present medications. - Repeat colonoscopy in 10 years for screening purposes. - Return to referring physician. - The findings and recommendations were discussed with the patient's family. Wale Anderson MD Wale Anderson MD 09/10/2016 12:19:42 PM This report has been signed electronically. Number of Addenda: 0 Note Initiated On: 09/10/2016 12:00 PM Estimated Blood Loss: Estimated blood loss: none.
[2016-09-10 12:35] VITALS: BP 133/86
== END ==
LOC: M OPP 11:05
PROVIDERS: ATTEND Internal Medicine Gastroenterology
DX: R93.3 Abnormal findings on diagnostic imaging of other parts of digestive tract (principal); K52.9 Noninfective gastroenteritis and colitis, unspecified; K57.30 Diverticulosis of large intestine without perforation or abscess without bleeding; K64.0 First degree hemorrhoids; A04.7 Enterocolitis due to Clostridium difficile; Z98.84 Bariatric surgery status; Z87.891 Personal history of nicotine dependence; I10 Essential (primary) hypertension; E78.5 Hyperlipidemia, unspecified; E66.3 Overweight; G47.30 Sleep apnea, unspecified; E55.9 Vitamin D deficiency, unspecified; K76.0 Fatty (change of) liver, not elsewhere classified; J45.990 Exercise induced bronchospasm; M85.80 Other specified disorders of bone density and structure, unspecified site; J30.2 Other seasonal allergic rhinitis; M51.34 Other intervertebral disc degeneration, thoracic region; M51.36 Other intervertebral disc degeneration, lumbar region; D50.9 Iron deficiency anemia, unspecified; I50.30 Unspecified diastolic (congestive) heart failure; G50.0 Trigeminal neuralgia; Z79.82 Long term (current) use of aspirin; Z79.899 Other long term (current) drug therapy; Z88.6 Allergy status to analgesic agent

== ENCOUNTER → 2016-11-05 | Outpatient (REF) | payer MEDICARE, OTHER ==
[~2016-11-05] MED LIST changes: -NS 1,000 ML IV SCH; -PROPOFOL 200 MG/20 ML VIAL As Ordered ONE
[2016-11-05 12:16] LABS: BASO # 0.1 K/mm3 (0.0-0.2); BASO % 1.2 % (0.0-1.0); EOS # 0.5 K/mm3 (0.0-0.50); EOS % 9.8 % (0.0-3.0); LARGE UNSTAINED CELL # 0.1 K/mm3 (0.0-0.4); LARGE UNSTAINED CELL % 2.3 % (0.0-4.0); LYMPH # 1.1 K/mm3 (1.5-4.5); MEAN CORPUSCULAR HEMOGLOBIN 34.1 pg (27.0-33.0); MEAN CORPUSCULAR VOLUME 100.4 fl (80.0-96.0); MONO # 0.3 K/mm3 (0.0-0.8); MONO % 6.9 % (0.0-5.0); NEUTROPHILS # 2.7 K/mm3 (1.8-7.7); NEUTROPHILS % 57.8 % (36.0-66.0); PLATELET COUNT, AUTOMATED 140 k/mm3 (150-450); RED CELL DISTRIBUTION WIDTH 12.4 % (11.5-14.5); WHITE BLOOD COUNT 4.7 K/mm3 (4.0-10.0)
[2016-11-05 12:34] LABS: ALBUMIN 3.4 GM/DL (3.2-5.2); ALBUMIN/GLOBULIN RATIO 1.13 (1.00-1.93); ALKALINE PHOSPHATASE 121 U/L (45-117); ALT/SGPT 24 U/L (12-78); ANION GAP 8 MEQ/L (8-16); AST/SGOT 23 U/L (15-37); BILIRUBIN,TOTAL 0.3 MG/DL (0.2-1.0); BLOOD UREA NITROGEN 15 MG/DL (7-18); CALCIUM LEVEL 9.1 MG/DL (8.8-10.2); CARBON DIOXIDE LEVEL 29 MEQ/L (21-32); CHLORIDE LEVEL 106 MEQ/L (98-107); CREATININE FOR GFR 0.73 MG/DL (0.55-1.02); FERRITIN 43 NG/ML (8-252); GLOMERULAR FILTRATION RATE > 60.0 (>45); GLUCOSE, FASTING 74 MG/DL (80-110); MAGNESIUM LEVEL 2.2 MG/DL (1.8-2.4); PERCENT SATURATION 40.5 % (13.2-37.4); POTASSIUM SERUM 4.2 MEQ/L (3.5-5.1); SODIUM LEVEL 143 MEQ/L (136-145); TOTAL IRON BINDING CAPACITY 348 UG/DL (250-450); TOTAL PROTEIN 6.4 GM/DL (6.4-8.2)
== END ==
LOC: M SFHCPLAZ 09:10
PROVIDERS: ATTEND Family Medicine
DX: D50.9 Iron deficiency anemia, unspecified (principal); I50.30 Unspecified diastolic (congestive) heart failure

== ENCOUNTER 2016-11-20 09:31 | Outpatient (CLI) | payer MEDICARE, BC, OTHER ==
[~2016-11-20] VITALS: Ht 160 cm; Wt 76.6 kg
[~2016-11-20 09:31] MED LIST changes: -AVAP75TA PO; +AVAP75TA7 PO; -COLA100C3 PO; +COLA100C5 PO; -DEXI60CA PO; +DEXI60CA2 PO
[2016-11-20] MEDS ORDERED: ZOLEDRONIC ACID 5 MG in APPROPRIATE DILUENT 1 EA IV ONE (10:00)
== END 2016-11-20 10:30 | disposition home or self-care (01) ==
LOC: M INFU 09:31
PROVIDERS: ATTEND Family Medicine
DX: M85.80 Other specified disorders of bone density and structure, unspecified site (principal); Z98.84 Bariatric surgery status; F17.210 Nicotine dependence, cigarettes, uncomplicated; Z88.8 Allergy status to other drugs, medicaments and biological substances; Z79.82 Long term (current) use of aspirin; Z79.899 Other long term (current) drug therapy
CPT/HCPCS: 96365; J3489

== ENCOUNTER → 2016-12-03 | Outpatient (CLI) | payer MEDICARE, BC, OTHER ==
--- NOTE | 2016-12-07 13:02 | SLEEPHOME ---
DATE OF PROCEDURE: 12/03/2016 REFERRING PROVIDER: Dr. Loco Winchester INTERPRETATION: Diagnostic home sleep testing was performed due to concern for the obstructive sleep apnea syndrome. For testing, a NOX-T3 respiratory monitoring device was used. Continuous record was made of pulse, oxygen saturation, air flow, chest and abdominal strain, and body position. 10 hours and 59 minutes of data were reviewed. There were 7 hours and 33 minutes identified as time in bed. During the interval marked time in bed, there were only 24 respiratory events identified of 10 seconds in duration or greater for a respiratory event index of 3.2. The events were primarily hypopneic and central. Baseline pulse rate was 68 beats per minute. Pulse rate ranged 60 to 93. Baseline saturation was 91%. Lowest oxygen saturation 86%. Testing was performed in both the supine and nonsupine positions. IMPRESSION: Borderline normal diagnostic home sleep test results with a few respiratory events, associated primarily with the supine posture. RECOMMENDATION: Sleep position retraining for avoidance of the supine posture should help with he events that were seen. As home testing can underestimate mild obstructive sleep apnea syndrome, if the patient's symptoms persist, referral for formal in laboratory diagnostic nocturnal polysomnography may be helpful.
== END ==
LOC: M SLEEP HO 11:37
PROVIDERS: ATTEND Family Medicine
DX: G47.9 Sleep disorder, unspecified (principal)

== ENCOUNTER → 2017-02-28 | Outpatient (REF) | payer MEDICARE, OTHER ==
[2017-02-28 12:37] LABS: BASO # 0.1 10^3/uL (0.0-0.2); BASO % 1.3 % (0.0-1.0); EOS # 0.4 10^3/uL (0.0-0.50); EOS % 5.9 % (0.0-3.0); IMMATURE GRANULOCYTE % 0.6 % (0-0); LYMPH % 15.3 % (24.0-44.0); MEAN CORPUSCULAR HEMOGLOBIN 33.1 pg (27.0-33.0); MEAN CORPUSCULAR VOLUME 100.2 fl (80.0-96.0); MONO # 0.5 10^3/uL (0.0-0.8); MONO % 7.5 % (0.0-5.0); NEUTROPHILS # 4.4 10^3/uL (1.8-7.7); NEUTROPHILS % 69.4 % (36.0-66.0); PLATELET COUNT, AUTOMATED 141 10^3/uL (150-450); RED CELL DISTRIBUTION WIDTH 12.6 % (11.5-14.5); WHITE BLOOD COUNT 6.4 10^3/uL (4.0-10.0)
[2017-02-28 13:01] LABS: ALBUMIN 3.4 GM/DL (3.2-5.2); ALBUMIN/GLOBULIN RATIO 1.21 (1.00-1.93); ALKALINE PHOSPHATASE 105 U/L (45-117); ALT/SGPT 27 U/L (12-78); ANION GAP 9 MEQ/L (8-16); AST/SGOT 26 U/L (15-37); BILIRUBIN,TOTAL 0.5 MG/DL (0.2-1.0); BLOOD UREA NITROGEN 11 MG/DL (7-18); CALCIUM LEVEL 9.4 MG/DL (8.8-10.2); CARBAMAZEPINE (TEGRETOL) LEVEL 4.5 UG/ML (4.0-10.0); CARBON DIOXIDE LEVEL 30 MEQ/L (21-32); CHLORIDE LEVEL 106 MEQ/L (98-107); CREATININE FOR GFR 0.74 MG/DL (0.55-1.02); FERRITIN 80 NG/ML (8-252); FREE T4 0.88 NG/DL (0.76-1.46); GLOMERULAR FILTRATION RATE > 60.0 (>45); GLUCOSE, FASTING 87 MG/DL (80-110); POTASSIUM SERUM 3.7 MEQ/L (3.5-5.1); SODIUM LEVEL 145 MEQ/L (136-145); TOTAL PROTEIN 6.2 GM/DL (6.4-8.2)
== END ==
LOC: M SFHCPLAZ 09:16
PROVIDERS: ATTEND Family Medicine
DX: Z98.84 Bariatric surgery status (principal); D50.9 Iron deficiency anemia, unspecified; E55.9 Vitamin D deficiency, unspecified; E66.3 Overweight; G50.0 Trigeminal neuralgia; I10 Essential (primary) hypertension; Z79.899 Other long term (current) drug therapy

== ENCOUNTER → 2017-09-22 | Outpatient (REF) | payer MEDICARE, OTHER | LOC: M SFHCPLAZ 09-24 17:19 | DX: R00.0 Tachycardia, unspecified (principal) | CPT/HCPCS: 82384 ==

== ENCOUNTER → 2017-10-15 | Outpatient (REF) | payer MEDICARE, OTHER ==
[2017-10-15 14:03] LABS: HEMATOCRIT 43.7 % (36.0-47.0)
[2017-10-15 14:23] LABS: VITAMIN B12 LEVEL > 2000 PG/ML (247-911)
[2017-10-15 14:31] LABS: ALBUMIN 3.6 GM/DL (3.2-5.2); ALBUMIN/GLOBULIN RATIO 1.38 (1.00-1.93); ALKALINE PHOSPHATASE 121 U/L (45-117); ALT/SGPT 17 U/L (12-78); ANION GAP 6 MEQ/L (8-16); AST/SGOT 19 U/L (7-37); BILIRUBIN,TOTAL 0.3 MG/DL (0.2-1.0); BLOOD UREA NITROGEN 15 MG/DL (7-18); CARBAMAZEPINE (TEGRETOL) LEVEL 5.3 UG/ML (4.0-10.0); CARBON DIOXIDE LEVEL 29 MEQ/L (21-32); CHLORIDE LEVEL 110 MEQ/L (98-107); GLOMERULAR FILTRATION RATE > 60.0 (>39); GLUCOSE, FASTING 88 MG/DL (70-100); MAGNESIUM LEVEL 2.2 MG/DL (1.8-2.4); SODIUM LEVEL 145 MEQ/L (136-145); TOTAL PROTEIN 6.2 GM/DL (6.4-8.2)
[2017-10-17 11:43] LABS: PRETREATED FOLATE FOR RBCFOL 10.7 NG/ML; RBC FOLATE 514.2 NG/ML (280-791)
[2017-10-18 00:07] LABS: CREATININE,RANDOM URINE 140.9 mg/dL (Not Estab.); F002-IgE Milk < 0.10 kU/L (Class 0); F004-IgE Wheat < 0.10 kU/L (Class 0); F013-IgE Peanut < 0.10 kU/L (Class 0); F014-IgE Soybean < 0.10 kU/L (Class 0); F026-IgE Pork < 0.10 kU/L (Class 0); F027-IgE Beef < 0.10 kU/L (Class 0); F245-IgE Egg, Whole < 0.10 kU/L (Class 0); FX02-IgE Food Mix (Sea Foods) Negative (.); TISSUE TRANSGLUTAMINASE IgA <2 U/mL (0-3); URINE METANEPHR/CREAT RATIO 0.5 (0.0-1.0); URINE METANEPHRINES RANDOM 247 ug/L (Undefined); URINE NORMETANEPHRINES RANDOM 446 ug/L (Undefined)
[2017-10-22 00:06] LABS: 5-HIAA, URINE 4.3 mg/L (Undefined)
== END ==
LOC: M SFHCPLAZ 09:43
DX: I10 Essential (primary) hypertension (principal); E53.8 Deficiency of other specified B group vitamins; G50.0 Trigeminal neuralgia; Z98.84 Bariatric surgery status; R23.2 Flushing; R00.0 Tachycardia, unspecified
CPT/HCPCS: 83497

== ENCOUNTER → 2017-10-31 | Outpatient (CLI) | payer MEDICARE, BC, OTHER | LOC: M RAD 14:33 | DX: R51 Headache (principal); I67.82 Cerebral ischemia | CPT/HCPCS: 70551 ==

== ENCOUNTER → 2017-11-07 | Outpatient (REF) | payer MEDICARE, OTHER ==
[2017-11-07 12:24] LABS: ERYTHROCYTE SEDIMENTATION RATE 4 mm/hr (0-30)
[2017-11-07 12:30] LABS: C REACTIVE PROTEIN QUANTITATIV < 0.30 MG/DL (0.00-0.30); FREE T4 0.75 NG/DL (0.76-1.46)
[2017-11-07 12:30] LABS: CPK CREATINE PHOSPHOKINASE 56 U/L (26-192)
== END ==
LOC: M SFHCPLAZ 09:12
DX: R51 Headache (principal); R19.8 Other specified symptoms and signs involving the digestive system and abdomen
CPT/HCPCS: 82550

== ENCOUNTER → 2018-04-07 | Outpatient (CLI) | payer MEDICARE, BC | LOC: M WHC 13:18 | DX: Z12.31 Encounter for screening mammogram for malignant neoplasm of breast (principal); Z78.0 Asymptomatic menopausal state; Z80.3 Family history of malignant neoplasm of breast | CPT/HCPCS: 77067 ==

== ENCOUNTER → 2018-04-27 | Outpatient (REF) | payer MEDICARE, OTHER ==
[2018-04-27 13:12] LABS: ALBUMIN/GLOBULIN RATIO 1.38 (1.00-1.93); ALKALINE PHOSPHATASE 129 U/L (45-117); ALT/SGPT 27 U/L (12-78); ANION GAP 7 MEQ/L (8-16); AST/SGOT 24 U/L (7-37); BILIRUBIN,TOTAL 0.8 MG/DL (0.2-1.0); BLOOD UREA NITROGEN 16 MG/DL (7-18); CALCIUM LEVEL 9.5 MG/DL (8.8-10.2); CARBON DIOXIDE LEVEL 28 MEQ/L (21-32); CHLORIDE LEVEL 106 MEQ/L (98-107); CREATININE FOR GFR 0.84 MG/DL (0.55-1.30); GLOMERULAR FILTRATION RATE > 60.0 (>39); GLUCOSE, FASTING 88 MG/DL (70-100); SODIUM LEVEL 141 MEQ/L (136-145); TOTAL PROTEIN 6.9 GM/DL (6.4-8.2)
[2018-04-27 13:30] LABS: HEMATOCRIT 45.8 % (36.0-47.0)
[2018-04-27 14:06] LABS: PTH INTACT 98.7 PG/ML (18.5-88.0); TOTAL 25(OH) VITAMIN D 50.5 NG/ML (30.0-100.0)
[2018-04-27 14:07] LABS: VITAMIN B12 LEVEL > 2000 PG/ML (247-911)
[2018-04-28 11:15] LABS: RBC FOLATE 504 NG/ML (280-791)
[2018-04-30 08:06] LABS: INSULIN LEVEL 3.5 uIU/mL (2.6-24.9)
[2018-04-30 08:06] LABS: CHROMOGRANIN A 3 nmol/L (0-5); F002-IgE Milk 0.21 kU/L (Class 0/I); F004-IgE Wheat < 0.10 kU/L (Class 0); F013-IgE Peanut < 0.10 kU/L (Class 0); F014-IgE Soybean < 0.10 kU/L (Class 0); F026-IgE Pork < 0.10 kU/L (Class 0); F027-IgE Beef < 0.10 kU/L (Class 0); F245-IgE Egg, Whole 0.12 kU/L (Class 0/I); FX02-IgE Food Mix (Sea Foods) Negative (.)
== END ==
LOC: M SFHCPLAZ 08:38
DX: E53.8 Deficiency of other specified B group vitamins (principal); E55.9 Vitamin D deficiency, unspecified; R23.2 Flushing; R27.0 Ataxia, unspecified; R51 Headache; D75.89 Other specified diseases of blood and blood-forming organs; E78.2 Mixed hyperlipidemia; R53.83 Other fatigue; M51.34 Other intervertebral disc degeneration, thoracic region; R19.8 Other specified symptoms and signs involving the digestive system and abdomen; A04.72 Enterocolitis due to Clostridium difficile, not specified as recurrent; M51.36 Other intervertebral disc degeneration, lumbar region; R10.13 Epigastric pain; D50.9 Iron deficiency anemia, unspecified; I50.30 Unspecified diastolic (congestive) heart failure; M85.80 Other specified disorders of bone density and structure, unspecified site; I10 Essential (primary) hypertension; G50.0 Trigeminal neuralgia; E66.3 Overweight; D69.6 Thrombocytopenia, unspecified; Z98.84 Bariatric surgery status
CPT/HCPCS: 83525

== ENCOUNTER 2018-05-14 07:47 | Outpatient (CLI) | payer MEDICARE, BC, OTHER ==
[~2018-05-14] VITALS: Ht 160 cm; Wt 72.0 kg
[~2018-05-14 07:47] MED LIST changes: +KLOR10TA76 PO; -POTA10CA PO
[2018-05-14 08:00] VITALS: BP 162/74
[2018-05-14] MEDS ORDERED: ZOLEDRONIC ACID 5 MG in APPROPRIATE DILUENT 1 EA IV ONE (08:00)
[2018-05-14 08:45] VITALS: BP 143/68
== END 2018-05-14 08:45 | disposition home or self-care (01) ==
LOC: M INFU 07:47
PROVIDERS: ATTEND Family Medicine
DX: M85.9 Disorder of bone density and structure, unspecified (principal)
CPT/HCPCS: 96365; J3489

== ENCOUNTER → 2018-10-02 | Outpatient (REF) | payer MEDICARE, OTHER ==
[~2018-10-02] MED LIST changes: -/PANT40TA OR; -ASPI1TAB PO; +ASPI81TA26 PO; +PROT1TAB2 OR
[2018-10-02 12:30] LABS: BASO # 0.1 10^3/uL (0.0-0.2); BASO % 1.4 % (0.0-1.0); EOS # 0.5 10^3/uL (0.0-0.50); LYMPH # 1.4 10^3/uL (1.5-4.5); LYMPH % 22.4 % (24.0-44.0); MEAN CORPUSCULAR HEMOGLOBIN 33.3 pg (27.0-33.0); MEAN CORPUSCULAR HGB CONC 33.3 g/dl (32.0-36.5); MONO # 0.5 10^3/uL (0.0-0.8); MONO % 7.7 % (0.0-5.0); NEUTROPHILS # 3.8 10^3/uL (1.8-7.7); PLATELET COUNT, AUTOMATED 158 10^3/uL (150-450); WHITE BLOOD COUNT 6.3 10^3/uL (4.0-10.0)
[2018-10-02 13:01] LABS: ALBUMIN 4.2 GM/DL (3.2-5.2); ALT/SGPT 27 U/L (12-78); BILIRUBIN,TOTAL 0.7 MG/DL (0.2-1.0); BLOOD UREA NITROGEN 9 MG/DL (7-18); CALCIUM LEVEL 9.5 MG/DL (8.8-10.2); CARBAMAZEPINE (TEGRETOL) LEVEL < 0.5 UG/ML (4.0-10.0); CARBON DIOXIDE LEVEL 29 MEQ/L (21-32); CHLORIDE LEVEL 107 MEQ/L (98-107); CREATININE FOR GFR 0.74 MG/DL (0.55-1.30); GLOMERULAR FILTRATION RATE > 60.0 (>39); GLUCOSE, FASTING 80 MG/DL (70-100); MAGNESIUM LEVEL 1.9 MG/DL (1.8-2.4); NT-PRO BNP 285 PG/ML (<125); POTASSIUM SERUM 4.7 MEQ/L (3.5-5.1); PTH INTACT 76.4 PG/ML (18.5-88.0); SODIUM LEVEL 143 MEQ/L (136-145); TOTAL 25(OH) VITAMIN D 50.1 NG/ML (30.0-100.0); TOTAL PROTEIN 6.9 GM/DL (6.4-8.2); VITAMIN B12 LEVEL 1588 PG/ML (247-911)
== END ==
LOC: M SFHCPLAZ 08:11
PROVIDERS: ATTEND Family Medicine
DX: I50.30 Unspecified diastolic (congestive) heart failure (principal); E53.8 Deficiency of other specified B group vitamins; E55.9 Vitamin D deficiency, unspecified; G50.0 Trigeminal neuralgia

== ENCOUNTER → 2019-02-17 | Outpatient (CLI) | payer MEDICARE, BC ==
--- NOTE | 2019-02-18 15:40 | DEXA ---
AP SPINE L1 - L4 1.066 -1.0 0.7 LT FEMUR TOTAL 0.779 -1.8 -0.3 LT NECK 0.715 -2.3 -0.6 RT FEMUR TOTAL 0.779 -1.8 -0.3 RT NECK 0.717 -2.3 -0.6 TOTAL BODY TOTAL OTHER COMMENTS: There is low bone density of the spine and hips. The density of the spine has increased 13.0% since the initial exam on 07/21/2002. The spine density has increased 7.1% since the most recent exam on 09/02/2016. The density of the left hip has decreased 18.5% since the initial exam on 07/21/2002. The density of the left hip has decreased 3.5% since the most recent exam on 09/02/2016. The density of the right hip has decreased 19.5% since the initial exam on 07/21/2002. The density of the right hip has decreased 3.0% since the most recent exam on 09/02/2016. FOLLOW-UP: Recommendation for the next bone density exam: 2 years. RODNEY
== END ==
LOC: M WHC 10:05
PROVIDERS: ATTEND Family Medicine
DX: M85.851 Other specified disorders of bone density and structure, right thigh (principal); M85.852 Other specified disorders of bone density and structure, left thigh

== ENCOUNTER → 2019-02-25 | Outpatient (REF) | payer MEDICARE, OTHER ==
[2019-02-25 10:20] LABS: BASO # 0.1 10^3/uL (0.0-0.2); BASO % 1.8 % (0.0-1.0); EOS # 0.4 10^3/uL (0.0-0.5); EOS % 7.7 % (0.0-3.0); HEMATOCRIT 42.5 % (36.0-47.0); HEMOGLOBIN 14.6 g/dl (12.0-15.5); LYMPH # 1.6 10^3/uL (1.5-5.0); LYMPH % 32.3 % (24.0-44.0); MEAN CORPUSCULAR HEMOGLOBIN 36.1 pg (27.0-33.0); MEAN CORPUSCULAR HGB CONC 34.4 g/dl (32.0-36.5); MEAN CORPUSCULAR VOLUME 105.2 fl (80.0-96.0); MONO # 0.4 10^3/uL (0.0-0.8); MONO % 7.3 % (0.0-5.0); NEUTROPHILS # 2.6 10^3/uL (1.5-8.5); NEUTROPHILS % 50.5 % (36.0-66.0); PLATELET COUNT, AUTOMATED 128 10^3/uL (150-450); RED BLOOD COUNT 4.04 10^6/uL (4.00-5.40); WHITE BLOOD COUNT 5.1 10^3/uL (4.0-10.0)
[2019-02-25 10:33] LABS: ALBUMIN 3.7 GM/DL (3.2-5.2); ALT/SGPT 22 U/L (12-78); BILIRUBIN,TOTAL 0.5 MG/DL (0.2-1.0); BLOOD UREA NITROGEN 7 MG/DL (7-18); CALCIUM LEVEL 9.3 MG/DL (8.8-10.2); CARBON DIOXIDE LEVEL 31 MEQ/L (21-32); CHLORIDE LEVEL 106 MEQ/L (98-107); CHOLESTEROL LEVEL 183 MG/DL (<200); CHOLESTEROL RISK RATIO 1.742 (<5); CREATININE FOR GFR 0.68 MG/DL (0.55-1.30); FREE T4 0.85 NG/DL (0.76-1.46); GLOMERULAR FILTRATION RATE > 60.0 (>39); GLUCOSE, FASTING 73 MG/DL (70-100); HDL CHOLESTEROL 105 MG/DL (>40); LDL CHOLESTEROL 43 MG/DL (<100); NON-HDL-C 78 MG/DL; NT-PRO BNP 367 PG/ML (<125); POTASSIUM SERUM 4.3 MEQ/L (3.5-5.1); SODIUM LEVEL 143 MEQ/L (136-145); TOTAL PROTEIN 6.6 GM/DL (6.4-8.2); TRIGLYCERIDES LEVEL 174 MG/DL (<150)
[2019-02-25 11:32] LABS: HEMATOCRIT 42.5 % (36.0-47.0)
== END ==
LOC: M SFHCPLAZ 08:00
PROVIDERS: ATTEND Family Medicine
DX: E78.2 Mixed hyperlipidemia (principal); D50.9 Iron deficiency anemia, unspecified; I50.30 Unspecified diastolic (congestive) heart failure; E53.8 Deficiency of other specified B group vitamins; Z98.84 Bariatric surgery status

== ENCOUNTER → 2019-03-16 | Outpatient (CLI) | payer MEDICARE, BC, OTHER ==
[~2019-03-16] MED LIST changes: -OMEP40CA2 PO; +OMEP40CA97 PO
--- NOTE | 2019-03-16 12:47 | REP ---
10 views thoracolumbar spine: 03/16/2019. Indication: Thoracolumbar pain. Comparison: 03/11/2016. Findings: There is no acute fracture, subluxation or dislocation. No erosive osseous lesions are detected. The patient is status post cholecystectomy. Aortoiliac atherosclerotic disease is present. Multilevel spondylitic sequelae are present throughout the thoracolumbar spine without severe neural foraminal or spinal canal narrowing detected. There is no instability of the lumbar spine during dynamic testing. Impression: No acute osseous injury of the thoracolumbar spine. Electronically Signed by Steven Rodriguez DO 03/16/2019 11:28 A
--- NOTE | 2019-03-16 14:56 | REP ---
Please see report for accession number [id number] as the reports were dictated together. Electronically Signed by Steven Rodriguez DO 03/16/2019 11:29 A
--- NOTE | 2019-03-16 16:44 | REP ---
BILATERAL LOWER EXTREMITY DUPLEX DOPPLER ARTERIAL ULTRASOUND: Real-time ultrasound evaluation and duplex Doppler interrogation of bilateral lower extremity arterial systems is performed. There is mild scattered partially calcified plaquing bilaterally in the lower extremity arterial systems. There is no duplex Doppler sonographic evidence of significant stenosis and certainly no evidence of arterial occlusion. MITCH bilaterally is 1.1. Biphasic and triphasic waveforms are seen diffusely bilaterally with no monophasic waveforms identified. There are normal flow velocities bilaterally. Peak systolic velocity Right Left MANAGER PROCESS 140.7 cm/s 85.7 cm/s Profunda 146.2 cm/s 76.4 cm/s SFA 140.9 cm/s 115.7 cm/s Popliteal 83.0 cm/s 81.5 cm/s HECTOR 79.9 cm/s 106.7 cm/s Tibial peroneal trunk 83.6 cm/s 60.7 cm/s CREAM HAULER 105.9 cm/s 51.5 cm/s IMPRESSION: Mild scattered plaquing and narrowing of the lower extremity arterial systems without evidence of stenosis or occlusion. Electronically Signed by Marquis Boswell MD 03/17/2019 12:31 P
== END ==
LOC: M RAD 10:23
PROVIDERS: ATTEND Family Medicine
DX: R29.898 Other symptoms and signs involving the musculoskeletal system (principal)

== ENCOUNTER → 2019-03-26 | Outpatient (CLI) | payer MEDICARE, BC, OTHER ==
--- NOTE | 2019-03-26 12:03 | REP ---
MRI lumbar spine: 03/26/2019. Indication: Lumbar radiculopathy. Comparison: 10/31/2017. Technique: Multiplanar short and long TR sequences of the lumbar spine were obtained without IV Gadolinium. Findings: Vertebral body alignment is anatomic. Disc desiccation and disc space height are present throughout. Rudimentary S1/S2 intervertebral disc is present. No worrisome marrow signal is present. The visualized cord is normal. L1/L2 and L2/L3: Mild disc bulges are present without significant spinal canal / neural foraminal narrowing. L3/L4: Diffuse disc bulge is present with mild left greater than right facet arthropathy. There is mild narrowing of the spinal canal. The neural foramen are patent. L4/L5: Diffuse disc bulge and bilateral facet arthropathy are present with mild to moderate bilateral recess narrowing. There is mild bilateral neural foraminal narrowing. L5/S1: Mild diffuse disc bulge is present without significant spinal canal or neural foraminal narrowing. Impression: Multilevel degenerative sequelae as described without significant spinal canal / neural foraminal narrowing or nerve root impingement. Transitional lumbosacral segment with rudimentary S1/S2 intervertebral disc. Electronically Signed by Steven Rodriguez DO 03/26/2019 11:54 A
== END ==
LOC: M PLARAD 09:11
PROVIDERS: ATTEND Family Medicine
DX: R29.898 Other symptoms and signs involving the musculoskeletal system (principal)

== ENCOUNTER → 2019-05-06 | Outpatient (CLI) | payer MEDICARE, BC, OTHER ==
--- NOTE | 2019-05-06 13:37 | REPMRS ---
Patient History The patient states she has not had a clinical breast exam in over a year. Family history of breast cancer at age 63 in sister. 3D TOMOSYNTHESIS WAS PERFORMED. [facility] lifetime risk for breast cancer is 7.4%. Digital Woman Screen Mammo: May 06, 2019 - Exam #: [id number] Bilateral CC and MLO view(s) were taken. Technologist: Liane Jesus, Technologist Prior study comparison: April 07, 2018, bilateral digital woman screen mammo performed at [facility]. March 27, 2016, digital woman screen mammo performed at [facility]. FINDINGS: There are scattered fibroglandular densities. There has been no change in the appearance of the mammogram from the prior studies. There is a mild amount of residual fibroglandular tissue which is fairly symmetric. There is no interval development of dominant mass, architectural distortion, or clustered microcalcification suggestive of malignancy. Assessment: BI-RADS/ACR category 1 mammogram. Negative Mammogram. Recommendation Routine screening mammogram in 1 year (for women over age 40). This mammogram was interpreted with the aid of an FDA-approved computer-aided dectection system. Electronically Signed By: Marquis Boswell MD 05/06/19 [id number]
== END ==
LOC: M WHC 12:47
PROVIDERS: ATTEND Family Medicine
DX: Z12.31 Encounter for screening mammogram for malignant neoplasm of breast (principal)

== ENCOUNTER → 2019-11-30 | Outpatient (REF) | payer MEDICARE, OTHER ==
[2019-11-30 11:50] LABS: BASO # 0.1 10^3/uL (0.0-0.2); BASO % 1.6 % (0.0-1.0); EOS # 0.5 10^3/uL (0.0-0.5); EOS % 8.6 % (0.0-3.0); HEMATOCRIT 45.3 % (36.0-47.0); HEMOGLOBIN 15.5 g/dl (12.0-15.5); LYMPH # 1.7 10^3/uL (1.5-5.0); LYMPH % 29.2 % (24.0-44.0); MEAN CORPUSCULAR HEMOGLOBIN 34.2 pg (27.0-33.0); MEAN CORPUSCULAR HGB CONC 34.2 g/dl (32.0-36.5); MONO # 0.5 10^3/uL (0.0-0.8); MONO % 8.5 % (0.0-5.0); NEUTROPHILS # 2.9 10^3/uL (1.5-8.5); NEUTROPHILS % 51.6 % (36.0-66.0); PLATELET COUNT, AUTOMATED 136 10^3/uL (150-450); RED BLOOD COUNT 4.53 10^6/uL (4.00-5.40); WHITE BLOOD COUNT 5.7 10^3/uL (4.0-10.0)
[2019-11-30 12:54] LABS: ALBUMIN 4.1 GM/DL (3.2-5.2); ALT/SGPT 25 U/L (12-78); BILIRUBIN,TOTAL 0.6 MG/DL (0.2-1.0); BLOOD UREA NITROGEN 8 MG/DL (7-18); CALCIUM LEVEL 9.6 MG/DL (8.8-10.2); CARBON DIOXIDE LEVEL 29 MEQ/L (21-32); CHLORIDE LEVEL 105 MEQ/L (98-107); CREATININE FOR GFR 0.71 MG/DL (0.55-1.30); FERRITIN 167 NG/ML (8-252); GLOMERULAR FILTRATION RATE > 60.0 (>39); GLUCOSE, FASTING 75 MG/DL (70-100); IRON (FE) 161 UG/DL (50-170); NT-PRO BNP 311 PG/ML (<125); PERCENT SATURATION 54.9 % (13.2-45.0); POTASSIUM SERUM 4.7 MEQ/L (3.5-5.1); PTH INTACT 83.3 PG/ML (18.5-88.0); SODIUM LEVEL 138 MEQ/L (136-145); TOTAL 25(OH) VITAMIN D 79.9 NG/ML (30.0-100.0); TOTAL IRON BINDING CAPACITY 293 UG/DL (250-450); TOTAL PROTEIN 7.2 GM/DL (6.4-8.2)
== END ==
LOC: M SFHCPLAZ 08:42
PROVIDERS: ATTEND Family Medicine
DX: I50.30 Unspecified diastolic (congestive) heart failure (principal); D50.9 Iron deficiency anemia, unspecified; E55.9 Vitamin D deficiency, unspecified; Z79.899 Other long term (current) drug therapy

== ENCOUNTER → 2020-05-23 | Outpatient (REF) | payer MEDICARE, OTHER ==
[2020-05-23 12:46] LABS: BASO # 0.1 10^3/uL (0.0-0.2); BASO % 0.8 % (0.0-1.0); EOS # 0.6 10^3/uL (0.0-0.5); HEMATOCRIT 47.4 % (36.0-47.0); HEMOGLOBIN 15.8 g/dl (12.0-15.5); LYMPH # 1.7 10^3/uL (1.5-5.0); LYMPH % 18.6 % (24.0-44.0); MEAN CORPUSCULAR HEMOGLOBIN 33.5 pg (27.0-33.0); MEAN CORPUSCULAR HGB CONC 33.3 g/dl (32.0-36.5); MEAN CORPUSCULAR VOLUME 100.6 fl (80.0-96.0); MONO % 10.8 % (0.0-5.0); NEUTROPHILS # 5.8 10^3/uL (1.5-8.5); NEUTROPHILS % 63.5 % (36.0-66.0); PLATELET COUNT, AUTOMATED 149 10^3/uL (150-450); RED BLOOD COUNT 4.71 10^6/uL (4.00-5.40); WHITE BLOOD COUNT 9.2 10^3/uL (4.0-10.0)
[2020-05-23 13:28] LABS: ALBUMIN 3.9 GM/DL (3.2-5.2); ALT/SGPT 16 U/L (12-78); BILIRUBIN,TOTAL 0.8 MG/DL (0.2-1.0); BLOOD UREA NITROGEN 13 MG/DL (7-18); CALCIUM LEVEL 10.3 MG/DL (8.8-10.2); CARBON DIOXIDE LEVEL 30 MEQ/L (21-32); CHLORIDE LEVEL 104 MEQ/L (98-107); CHOLESTEROL LEVEL 205 MG/DL (<200); CHOLESTEROL RISK RATIO 1.863 (<5); FREE T4 0.91 NG/DL (0.76-1.46); GLOMERULAR FILTRATION RATE > 60.0 (>39); GLUCOSE, FASTING 87 MG/DL (70-100); HDL CHOLESTEROL 110 MG/DL (>40); LDL CHOLESTEROL 76 MG/DL (<100); MAGNESIUM LEVEL 2.2 MG/DL (1.8-2.4); NON-HDL-C 95 MG/DL; NT-PRO BNP 305 PG/ML (<125); POTASSIUM SERUM 4.6 MEQ/L (3.5-5.1); SODIUM LEVEL 140 MEQ/L (136-145); TOTAL PROTEIN 6.8 GM/DL (6.4-8.2); TRIGLYCERIDES LEVEL 97 MG/DL (<150)
[2020-05-23 13:32] LABS: VITAMIN B12 LEVEL 1125 PG/ML (247-911)
== END ==
LOC: M SFHCADAM 09:01
PROVIDERS: ATTEND Family Medicine
DX: I50.30 Unspecified diastolic (congestive) heart failure (principal); D69.6 Thrombocytopenia, unspecified

== ENCOUNTER → 2020-06-07 | Outpatient (CLI) | payer MEDICARE, BC, OTHER | LOC: M LABSMTC 11:17 | PROVIDERS: ATTEND Family Medicine | DX: Z11.52 Encounter for screening for COVID-19 (principal) ==

== ENCOUNTER 2020-09-16 09:53 | Emergency (ER) | payer MEDICARE, BC, OTHER ==
[~2020-09-16] VITALS: Ht 160 cm; Wt 69.5 kg
[~2020-09-16 09:53] MED LIST changes: -AMIT10TA PO; +AMIT10TA7 PO
[2020-09-16] MEDS ORDERED: FERR324T21 PO (10:08)
[2020-09-16] MEDS ORDERED: SIME180C25 PO (10:08)
[2020-09-16] MEDS ORDERED: vitamin d3 PO (10:08)
[2020-09-16] MEDS ORDERED: HYDR-3713 PO (10:08)
[2020-09-16] MEDS ORDERED: BIOT1CAP2 PO (10:08)
--- NOTE | 2020-09-16 10:55 | REP ---
INDICATION: fall injury, swelling COMPARISON: None. TECHNIQUE: AP, lateral, bilateral oblique views. FINDINGS: Generalized age-related osteopenia is appreciated. Lateral swelling consistent with inversion injury. No acute fracture or dislocation identified. IMPRESSION: Swelling. No acute fracture or dislocation. <Electronically signed by Wilberto Blanco > 09/16/20 [id number]
--- NOTE | 2020-09-16 12:51 | REP ---
INDICATION: right distal tibial pain on exam; ?fx COMPARISON: None. TECHNIQUE: AP and lateral views of the right tibia/fibula FINDINGS: Age-related degenerative changes are appreciated from the knee through the ankle. No obvious acute fracture or dislocation. No subcutaneous emphysema or foreign body. IMPRESSION: Age-related degenerative changes. No acute fracture or dislocation. <Electronically signed by Wilberto Blanco > 09/16/20 [id number]
[2020-09-16 13:00] VITALS: BP 176/72
== END 2020-09-16 13:02 | disposition home or self-care (01) ==
LOC: M ED 09:53
DX: S93.401A Sprain of unspecified ligament of right ankle, initial encounter (principal); X50.9XXA Other and unspecified overexertion or strenuous movements or postures, initial encounter; Y92.018 Other place in single-family (private) house as the place of occurrence of the external cause; I11.0 Hypertensive heart disease with heart failure; I50.9 Heart failure, unspecified; K21.9 Gastro-esophageal reflux disease without esophagitis; Z91.048 Other nonmedicinal substance allergy status; Z98.84 Bariatric surgery status; Z79.899 Other long term (current) drug therapy; Z79.82 Long term (current) use of aspirin

== ENCOUNTER 2020-10-03 15:21 | Outpatient (CLI) | payer MEDICARE, BC, OTHER ==
[~2020-10-03] VITALS: Ht 160 cm; Wt 68.1 kg
[~2020-10-03 15:21] MED LIST changes: +BIOT1CAP2 PO; +FERR324T21 PO; +HYDR-3713 PO; +OMEP40CA4 PO; -OMEP40CA97 PO; +SIME180C25 PO; +vitamin d3 PO
[2020-10-03 15:25] VITALS: BP 176/86
[2020-10-03] MEDS: ZOLEDRONIC ACID 5 MG in IV 1 EA IV ONE ×3 (15:30→16:08)
[2020-10-03 16:20] VITALS: BP 176/84
== END 2020-10-03 16:20 | disposition home or self-care (01) ==
LOC: M INFU 15:21
PROVIDERS: ATTEND Family Medicine
DX: M85.80 Other specified disorders of bone density and structure, unspecified site (principal)
CPT/HCPCS: 96365; J3489

== ENCOUNTER → 2021-01-31 | Outpatient (CLI) | payer MEDICARE, BC ==
--- NOTE | 2021-01-31 15:57 | DEXAMM ---
INDICATION: M85.80 OSTEOPENIA. COMPARISON: 02/17/2019 as well as other prior exams. TECHNIQUE: Bone density was measured using dual-energy x-ray absorptiometry (DEXA). FINDINGS: AP SPINE L1-L4 BMD 1.052 g/cm2 Young Adult T-Score -1.2 Age Matched Z-Score 0.6. LT FEMUR, TOTAL BMD 0.782 g/cm2 Young Adult T-Score -1.8 Age Matched Z-Score -0.2. LT NECK BMD 0.734 g/cm2 Young Adult T-Score -2.2 Age Matched Z-Score -0.3. RT FEMUR, TOTAL BMD 0.776 g/cm2 Young Adult T-Score -1.8 Age Matched Z-Score -0.2. RT NECK BMD 0.736 g/cm2 Young Adult T-Score -2.2 Age Matched Z-Score -0.3. IMPRESSION: There is low bone density of the spine. There is low bone density of the left hip. There is low bone density of the right hip. The density of the spine has increased 11.6% since the initial exam on 07/21/2002. The density of the spine decreased 1.3% since most recent exam on 02/17/2019. The density of the left hip has decreased 18.2% since initial exam on 07/21/2002. The density of the left hip has increased 0.4% since most recent exam on 02/17/2019. The density of the right hip has decreased 19.8% since the initial exam on 07/21/2002. The density of the right hip has decreased 0.4% since the most recent exam on 02/17/2019. FOLLOW-UP: Recommendation for the next bone density exam: 2 years. <Electronically signed by Marquis Boswell > 01/31/21 1157
== END ==
LOC: M WHC 12:59
PROVIDERS: ATTEND Family Medicine
DX: M81.0 Age-related osteoporosis without current pathological fracture (principal)

== ENCOUNTER → 2021-02-20 | Outpatient (CLI) | payer MEDICARE, BC ==
[~2021-02-20] MED LIST changes: -KLOR10TA76 PO; +POTA-136 PO
[2021-02-20 13:32] LABS: BASO # 0.1 10^3/uL (0.0-0.2); BASO % 1.1 % (0.0-1.0); EOS # 0.5 10^3/uL (0.0-0.5); EOS % 6.4 % (0.0-3.0); HEMATOCRIT 45.5 % (36.0-47.0); HEMOGLOBIN 15.4 g/dl (12.0-15.5); LYMPH # 1.6 10^3/uL (1.5-5.0); MEAN CORPUSCULAR HEMOGLOBIN 34.2 pg (27.0-33.0); MEAN CORPUSCULAR HGB CONC 33.8 g/dl (32.0-36.5); MEAN CORPUSCULAR VOLUME 101.1 fl (80.0-96.0); MONO # 0.6 10^3/uL (0.0-0.8); MONO % 8.7 % (2.0-8.0); NEUTROPHILS # 4.5 10^3/uL (1.5-8.5); NEUTROPHILS % 61.1 % (36.0-66.0); PLATELET COUNT, AUTOMATED 158 10^3/uL (150-450); WHITE BLOOD COUNT 7.3 10^3/uL (4.0-10.0)
[2021-02-20 14:28] LABS: ALBUMIN 3.9 GM/DL (3.2-5.2); BLOOD UREA NITROGEN 9 MG/DL (7-18); CARBON DIOXIDE LEVEL 30 MEQ/L (21-32); CHLORIDE LEVEL 105 MEQ/L (98-107); FERRITIN 107 NG/ML (8-252); GLOMERULAR FILTRATION RATE > 60.0 (>39); GLUCOSE, FASTING 88 MG/DL (70-100); NT-PRO BNP 394 PG/ML (<125); PHOSPHORUS LEVEL 3.5 MG/DL (2.5-4.9); POTASSIUM SERUM 4.4 MEQ/L (3.5-5.1); PTH INTACT 55.9 PG/ML (18.5-88.0); SODIUM LEVEL 139 MEQ/L (136-145); TOTAL 25(OH) VITAMIN D 95.8 NG/ML (30.0-100.0)
== END ==
LOC: M PLALAB 09:41
PROVIDERS: ATTEND Family Medicine
DX: I50.30 Unspecified diastolic (congestive) heart failure (principal)

== ENCOUNTER → 2021-10-10 | Outpatient (REF) | payer MEDICARE, OTHER ==
[2021-10-10 16:48] LABS: BASO # 0.1 10^3/uL (0.0-0.2); BASO % 1.1 % (0.0-1.0); EOS # 0.4 10^3/uL (0.0-0.5); EOS % 5.6 % (0.0-3.0); HEMATOCRIT 45.4 % (36.0-47.0); HEMOGLOBIN 15.2 g/dl (12.0-15.5); LYMPH # 1.9 10^3/uL (1.5-5.0); LYMPH % 26.9 % (24.0-44.0); MEAN CORPUSCULAR HEMOGLOBIN 32.8 pg (27.0-33.0); MEAN CORPUSCULAR HGB CONC 33.5 g/dl (32.0-36.5); MEAN CORPUSCULAR VOLUME 98.1 fl (80.0-96.0); MONO # 0.8 10^3/uL (0.0-0.8); MONO % 11.6 % (2.0-8.0); NEUTROPHILS # 3.8 10^3/uL (1.5-8.5); NEUTROPHILS % 54.2 % (36.0-66.0); PLATELET COUNT, AUTOMATED 174 10^3/uL (150-450); RED BLOOD COUNT 4.63 10^6/uL (4.00-5.40)
[2021-10-10 17:16] LABS: CHOLESTEROL LEVEL 219 MG/DL (<200); CHOLESTEROL RISK RATIO 2.576 (<5); FERRITIN 133 NG/ML (8-252); FREE T4 0.92 NG/DL (0.76-1.46); HDL CHOLESTEROL 85 MG/DL (>40); IRON (FE) 82 UG/DL (50-170); LDL CHOLESTEROL 101 MG/DL (<100); NON-HDL-C 134 MG/DL; TRIGLYCERIDES LEVEL 167 MG/DL (<150)
[2021-10-10 17:17] LABS: TOTAL 25(OH) VITAMIN D 55.5 NG/ML (30.0-100.0); VITAMIN B12 LEVEL > 2000 PG/ML
== END ==
LOC: M SFHCADAM 15:30
PROVIDERS: ATTEND Physician Assistant
DX: E78.2 Mixed hyperlipidemia (principal); E53.8 Deficiency of other specified B group vitamins; E55.9 Vitamin D deficiency, unspecified; Z98.84 Bariatric surgery status; Z79.899 Other long term (current) drug therapy

== ENCOUNTER → 2021-11-06 | Outpatient (REF) | payer MEDICARE, OTHER ==
[2021-11-06 13:29] LABS: BLOOD UREA NITROGEN 12 MG/DL (7-18); CALCIUM LEVEL 9.2 MG/DL (8.8-10.2); CARBON DIOXIDE LEVEL 28 MEQ/L (21-32); CHLORIDE LEVEL 107 MEQ/L (98-107); GLOMERULAR FILTRATION RATE > 60.0 (>39); GLUCOSE, FASTING 139 MG/DL (70-100); SODIUM LEVEL 141 MEQ/L (136-145)
== END ==
LOC: M SFHCADAM 10:02
PROVIDERS: ATTEND Physician Assistant
DX: I10 Essential (primary) hypertension (principal); M81.0 Age-related osteoporosis without current pathological fracture

== ENCOUNTER 2021-11-15 12:50 | Outpatient (CLI) | payer MEDICARE, BC, OTHER ==
[~2021-11-15] VITALS: Ht 160 cm; Wt 75.9 kg
[2021-11-15] MEDS ORDERED: ZOLEDRONIC ACID 5 MG in IV 1 EA IV ONE (13:00)
[2021-11-15 13:51] VITALS: BP 160/76
== END 2021-11-15 13:45 | disposition home or self-care (01) ==
LOC: M INFU 12:50
PROVIDERS: ATTEND Physician Assistant
DX: M85.80 Other specified disorders of bone density and structure, unspecified site (principal)
CPT/HCPCS: 96365; J3489

== ENCOUNTER → 2021-11-16 | Outpatient (CLI) | payer MEDICARE, BC, OTHER | LOC: M WHC 14:45 | PROVIDERS: ATTEND Physician Assistant | DX: Z12.31 Encounter for screening mammogram for malignant neoplasm of breast (principal); M81.0 Age-related osteoporosis without current pathological fracture ==

== ENCOUNTER → 2022-08-01 | Outpatient (CLI) | payer MEDICARE, BC, OTHER | LOC: M CARPUL 05-16 08:12 | PROVIDERS: ATTEND Physician Assistant | DX: R01.1 Cardiac murmur, unspecified (principal) ==

== ENCOUNTER 2022-10-22 17:33 | Emergency (ER) | payer MEDICARE, BC, OTHER ==
[~2022-10-22] VITALS: Ht 160 cm; Wt 74.6 kg
[2022-10-22 17:33] VITALS: BP 180/80
== END 2022-10-22 21:56 | disposition left against medical advice (07) ==
LOC: M ED 17:33
DX: Z53.21 Procedure and treatment not carried out due to patient leaving prior to being seen by health care provider (principal)

== ENCOUNTER → 2022-10-24 | Outpatient (CLI) | payer MEDICARE, BC, OTHER ==
[~2022-10-24] MED LIST changes: +CYCL5TAB PO
== END ==
LOC: M ADAMS 08:54
PROVIDERS: ATTEND Physician Assistant
DX: M54.41 Lumbago with sciatica, right side (principal); M51.36 Other intervertebral disc degeneration, lumbar region

== ENCOUNTER → 2023-02-27 | Outpatient (REF) | payer MEDICARE, BC, OTHER ==
[2023-02-27 15:29] LABS: BASO # 0.1 10^3/uL (0.0-0.2); BASO % 0.8 % (0.0-1.0); EOS # 0.3 10^3/uL (0.0-0.5); EOS % 4.3 % (0.0-3.0); HEMATOCRIT 44.2 % (36.0-47.0); HEMOGLOBIN 15.1 g/dl (12.0-15.5); LYMPH # 0.2 10^3/uL (1.5-5.0); MEAN CORPUSCULAR HEMOGLOBIN 33.3 pg (27.0-33.0); MEAN CORPUSCULAR HGB CONC 34.2 g/dl (32.0-36.5); MEAN CORPUSCULAR VOLUME 97.6 fl (80.0-96.0); MONO # 0.4 10^3/uL (0.0-0.8); MONO % 7.3 % (2.0-8.0); NEUTROPHILS % 83.3 % (36.0-66.0); PLATELET COUNT, AUTOMATED 155 10^3/uL (150-450); RED BLOOD COUNT 4.53 10^6/uL (4.00-5.40)
[2023-02-27 15:32] LABS: THYROID STIMULATING HORMONE 1.068 uIU/ML (0.55-4.78)
[2023-02-27 15:34] LABS: FERRITIN 83.7 NG/ML (7.3-270.7)
[2023-02-27 15:36] LABS: IRON (FE) 29 UG/DL (50-170)
[2023-02-27 15:37] LABS: ALBUMIN 3.8 G/DL (3.2-5.2); ALKALINE PHOSPHATASE 127 U/L (46-116); ALT/SGPT 20 U/L (7.0-40); AST/SGOT 25 U/L (<34); BILIRUBIN,TOTAL 0.7 MG/DL (0.3-1.2); BLOOD UREA NITROGEN 11 MG/DL (9-23); CALCIUM LEVEL 9.4 MG/DL (8.3-10.6); CARBON DIOXIDE LEVEL 27 MMOL/L (20-31); CHLORIDE LEVEL 106 MMOL/L (98-107); CHOLESTEROL LEVEL 176 MG/DL (<200); CHOLESTEROL RISK RATIO 2.33 (<5); CREATININE FOR GFR 0.69 MG/DL (0.55-1.30); GLOMERULAR FILTRATION RATE > 60.0 (>39); GLUCOSE, FASTING 100 MG/DL (74-106); HDL CHOLESTEROL 75.5 MG/DL (>40); LDL CHOLESTEROL 83.5 MG/DL (<100); NON-HDL-C 100.5 MG/DL; PERCENT SATURATION 9.9 % (13.2-45.0); POTASSIUM SERUM 4.1 MMOL/L (3.5-5.1); SODIUM LEVEL 139 MMOL/L (136-145); TOTAL IRON BINDING CAPACITY 294 UG/DL (250-425); TOTAL PROTEIN 6.5 G/DL (5.7-8.2); TRIGLYCERIDES LEVEL 85 MG/DL (<150)
[2023-02-27 15:39] LABS: FOLATE > 24.0 NG/ML (>5.4); VITAMIN B12 LEVEL 1014 PG/ML (211-911)
[2023-02-27 15:56] LABS: MAU/CREAT RATIO 6.6 MCG/MG (0.0-30.0)
== END ==
LOC: M SFHCADAM 08:15
PROVIDERS: ATTEND Physician Assistant
DX: Z00.00 Encounter for general adult medical examination without abnormal findings (principal); M51.36 Other intervertebral disc degeneration, lumbar region; Z12.31 Encounter for screening mammogram for malignant neoplasm of breast; M85.80 Other specified disorders of bone density and structure, unspecified site; Z23 Encounter for immunization; M81.0 Age-related osteoporosis without current pathological fracture; I10 Essential (primary) hypertension; Z98.84 Bariatric surgery status; D50.9 Iron deficiency anemia, unspecified

== ENCOUNTER 2023-03-10 13:24 | Outpatient (CLI) | payer MEDICARE, BC, OTHER ==
[~2023-03-10] VITALS: Ht 160 cm; Wt 77.0 kg
[2023-03-10 14:05] VITALS: BP 154/80; O2SAT 98
[2023-03-10] MEDS ORDERED: ZOLEDRONIC ACID 5 MG in IV 1 EA IV ONE (14:30)
[2023-03-10 15:15] VITALS: BP 150/70; O2SAT 97
== END 2023-03-10 15:10 ==
LOC: M INFU 13:24
PROVIDERS: ATTEND Family Medicine
DX: M85.80 Other specified disorders of bone density and structure, unspecified site (principal)
CPT/HCPCS: 96365; J3489

== ENCOUNTER → 2023-09-05 | Outpatient (CLI) | payer MEDICARE, BC | LOC: M PLAIMG 13:38 | PROVIDERS: ATTEND Physician Assistant | DX: R55 Syncope and collapse (principal); I11.0 Hypertensive heart disease with heart failure; R01.1 Cardiac murmur, unspecified ==

== ENCOUNTER → 2023-09-11 | Outpatient (REF) | payer MEDICARE, BC ==
[2023-09-11 18:33] LABS: ALBUMIN 3.7 G/DL (3.2-5.2); ALKALINE PHOSPHATASE 121 U/L (46-116); ALT/SGPT 17 U/L (7.0-40); AST/SGOT 19 U/L (<34); BILIRUBIN,TOTAL 0.4 MG/DL (0.3-1.2); BLOOD UREA NITROGEN 12 MG/DL (9-23); CALCIUM LEVEL 10.1 MG/DL (8.3-10.6); CARBON DIOXIDE LEVEL 30 MMOL/L (20-31); CHLORIDE LEVEL 106 MMOL/L (98-107); CREATININE FOR GFR 0.82 MG/DL (0.55-1.30); GLOMERULAR FILTRATION RATE > 60.0 (>39); GLUCOSE, FASTING 80 MG/DL (74-106); MAGNESIUM LEVEL 1.9 MG/DL (1.8-2.4); POTASSIUM SERUM 4.5 MMOL/L (3.5-5.1); SODIUM LEVEL 143 MMOL/L (136-145); TOTAL PROTEIN 6.6 G/DL (5.7-8.2)
== END ==
LOC: M SFHCADAM 15:26
PROVIDERS: ATTEND Physician Assistant
DX: E87.6 Hypokalemia (principal); E83.42 Hypomagnesemia; I10 Essential (primary) hypertension

== ENCOUNTER → 2023-09-15 | Outpatient (CLI) | payer MEDICARE, BC | LOC: M RAD 08:42 | PROVIDERS: ATTEND Physician Assistant | DX: R55 Syncope and collapse (principal); I11.0 Hypertensive heart disease with heart failure; I50.9 Heart failure, unspecified ==

== ENCOUNTER → 2023-11-18 | Outpatient (CLI) | payer MEDICARE, BC | LOC: M WHC 09:12 | PROVIDERS: ATTEND Physician Assistant | DX: Z12.31 Encounter for screening mammogram for malignant neoplasm of breast (principal); M81.0 Age-related osteoporosis without current pathological fracture ==

== ENCOUNTER → 2023-11-25 | Outpatient (REF) | payer MEDICARE, OTHER ==
[2023-11-25 17:30] LABS: PLATELET COUNT, AUTOMATED 167 10^3/uL (150-450)
[2023-11-25 17:36] LABS: INR 1.02; PARTIAL THROMBOPLASTIN TIME 29.3 SECONDS (24.8-34.2); PROTHROMBIN TIME 13.1 SECONDS (12.5-14.5)
== END ==
LOC: M LABDRWAD 16:53
PROVIDERS: ATTEND Physician Assistant
DX: Z01.812 Encounter for preprocedural laboratory examination (principal); Z79.01 Long term (current) use of anticoagulants

== ENCOUNTER → 2024-03-25 | Outpatient (REF) | payer MEDICARE, OTHER, BC ==
[~2024-03-25] MED LIST changes: -SIME180C25 PO; +SIME1CAP4 PO
[2024-03-25 14:36] LABS: DRVV SCREEN 31.1 SECONDS
[2024-03-25 14:41] LABS: PTT LUPUS TYPE ANTICOAG SCREEN 0.76 (0-1.20)
== END ==
LOC: M LABDRWAD 12:23
PROVIDERS: ATTEND Psychiatry & Neurology Neurology
DX: G35 Multiple sclerosis (principal)

== ENCOUNTER 2024-03-26 05:22 | Emergency (ER) | payer MEDICARE, OTHER, BC ==
[~2024-03-26] VITALS: Ht 160 cm; Wt 66.4 kg
[2024-03-26] MEDS: ONDANSETRON 4MG 2ML VIAL IV ONE (05:47)
[2024-03-26] MEDS: MORPHINE 4 MG/ML 1ML VIAL IV ONE (05:48)
[2024-03-26 06:05] LABS: BASO # 0.1 10^3/uL (0.0-0.2); BASO % 0.9 % (0.0-1.0); EOS # 0.4 10^3/uL (0.0-0.5); EOS % 3.8 % (0.0-3.0); HEMATOCRIT 43.8 % (36.0-47.0); HEMOGLOBIN 14.8 g/dl (12.0-15.5); LYMPH # 1.5 10^3/uL (1.5-5.0); LYMPH % 15.7 % (24.0-44.0); MEAN CORPUSCULAR HEMOGLOBIN 33.8 pg (27.0-33.0); MEAN CORPUSCULAR HGB CONC 33.8 g/dl (32.0-36.5); MONO # 0.7 10^3/uL (0.0-0.8); MONO % 7.7 % (2.0-8.0); NEUTROPHILS # 6.9 10^3/uL (1.5-8.5); NEUTROPHILS % 71.3 % (36.0-66.0); PLATELET COUNT, AUTOMATED 169 10^3/uL (150-450); RED BLOOD COUNT 4.38 10^6/uL (4.00-5.40); WHITE BLOOD COUNT 9.6 10^3/uL (4.0-10.0)
[2024-03-26 06:25] LABS: LIPASE 24 U/L (12-53)
[2024-03-26 06:28] LABS: ALKALINE PHOSPHATASE 95 U/L (35-104); ALT/SGPT 28 U/L (7.0-40); AST/SGOT 26 U/L (<34); BILIRUBIN,DIRECT 0.2 MG/DL (<0.4); BILIRUBIN,TOTAL 0.5 MG/DL (0.3-1.2); BLOOD UREA NITROGEN 7 MG/DL (9-23); CALCIUM LEVEL 10.4 MG/DL (8.3-10.6); CARBON DIOXIDE LEVEL 27 MMOL/L (20-31); CHLORIDE LEVEL 100 MMOL/L (98-107); CK-MB VALUE MASS 1.7 NG/ML (<3.6); CREATININE FOR GFR 0.58 MG/DL (0.55-1.30); GLOMERULAR FILTRATION RATE > 60.0 (>39); GLUCOSE, FASTING 91 MG/DL (74-106); POTASSIUM SERUM 4.4 MMOL/L (3.5-5.1); SODIUM LEVEL 132 MMOL/L (136-145); TOTAL PROTEIN 7.1 G/DL (5.7-8.2)
[2024-03-26 06:29] LABS: THYROID STIMULATING HORMONE 1.901 uIU/ML (0.55-4.78)
[2024-03-26] MEDS: NITROGLYCERIN 0.4MG SUBL TABLET SL PRN (06:29)
[2024-03-26 06:30] VITALS: BP 202/84
[2024-03-26 06:30] LABS: FREE T4 1.22 NG/DL (0.89-1.76)
[2024-03-26 06:32] LABS: CPK CREATINE PHOSPHOKINASE 94 U/L (34-145)
[2024-03-26 07:16] LABS: CK-MB VALUE MASS 1.9 NG/ML (<3.6); MB/CK RELATIVE INDEX 2.2 (< OR =4)
[2024-03-26] MEDS ORDERED: ISOVUE-370 76% 100ML VIAL As Ordered ONE (07:21)
[2024-03-26] MEDS: KETOROLAC 30 MG/ML 1ML VIAL IV ONE (07:44)
[2024-03-26 08:00] VITALS: BP 188/85; TEMP 97.6; O2SAT 97
== END 2024-03-26 08:45 | disposition home or self-care (01) ==
LOC: M ED 05:22
DX: R07.81 Pleurodynia (principal); R00.1 Bradycardia, unspecified; I44.0 Atrioventricular block, first degree; J45.909 Unspecified asthma, uncomplicated; I50.22 Chronic systolic (congestive) heart failure; I11.0 Hypertensive heart disease with heart failure; E78.5 Hyperlipidemia, unspecified; F03.90 Unspecified dementia, unspecified severity, without behavioral disturbance, psychotic disturbance, mood disturbance, and anxiety; F17.210 Nicotine dependence, cigarettes, uncomplicated; Z91.09 Other allergy status, other than to drugs and biological substances; Z79.1 Long term (current) use of non-steroidal anti-inflammatories (NSAID); Z79.810 Long term (current) use of selective estrogen receptor modulators (SERMs); Z79.899 Other long term (current) drug therapy
CPT/HCPCS: 71045; 71275; 80048; 80076; 82550; 82553; 83690; 84439; 84443; 84484; 85025; 93005; 93041; 94760; 96374; 96375; 99285; J1885; J2405; Q9967

== ENCOUNTER 2024-04-21 05:06 | Inpatient (IN) | payer MEDICARE, BC ==
[~2024-04-21] VITALS: Ht 160 cm; Wt 61.4 kg
[~2024-04-21 05:06] MED LIST changes: -CYCL5TAB PO; +CYCL5TAB4 PO
[2024-04-21] MEDS: ONDANSETRON 4MG 2ML VIAL IV ONE (06:47)
[2024-04-21] MEDS: MORPHINE 4 MG/ML 1ML VIAL IV ONE (06:47)
[2024-04-21 08:08] LABS: BASO % 0.3 % (0.0-1.0); EOS % 0.3 % (0.0-3.0); HEMATOCRIT 38.9 % (36.0-47.0); HEMOGLOBIN 13.9 g/dl (12.0-15.5); LYMPH # 0.8 10^3/uL (1.5-5.0); LYMPH % 6.8 % (24.0-44.0); MEAN CORPUSCULAR HEMOGLOBIN 34.8 pg (27.0-33.0); MEAN CORPUSCULAR HGB CONC 35.7 g/dl (32.0-36.5); MEAN CORPUSCULAR VOLUME 97.5 fl (80.0-96.0); MONO % 8.4 % (2.0-8.0); NEUTROPHILS # 9.8 10^3/uL (1.5-8.5); NEUTROPHILS % 83.3 % (36.0-66.0); PLATELET COUNT, AUTOMATED 148 10^3/uL (150-450); RED BLOOD COUNT 3.99 10^6/uL (4.00-5.40); WHITE BLOOD COUNT 11.7 10^3/uL (4.0-10.0)
[2024-04-21 08:14] LABS: ETHYL ALCOHOL (ETHANOL) 0.028 % (0.000-0.010)
[2024-04-21 08:24] LABS: BLOOD UREA NITROGEN 6 MG/DL (9-23); CALCIUM LEVEL 9.3 MG/DL (8.3-10.6); CARBON DIOXIDE LEVEL 22 MMOL/L (20-31); CHLORIDE LEVEL 94 MMOL/L (98-107); CREATININE FOR GFR 0.47 MG/DL (0.55-1.30); GLOMERULAR FILTRATION RATE > 60.0 (>39); GLUCOSE, FASTING 96 MG/DL (74-106); SODIUM LEVEL 124 MMOL/L (136-145)
[2024-04-21] MEDS: IRBESARTAN 150MG TAB PO SCH (09:00)
[2024-04-21] MEDS: FERROUS GLUCONATE 324 MG TAB PO SCH (09:00)
[2024-04-21] MEDS: CALCIUM/VITAMIN D 500 MG TAB PO SCH (09:00)
[2024-04-21 09:02] LABS: OSMOLALITY SERUM 265 MOSM/KG (280-301)
[2024-04-21 09:06] LABS: FREE T4 1.03 NG/DL (0.89-1.76)
[2024-04-21] MEDS ORDERED: DULO20CA27 PO (09:28)
[2024-04-21] MEDS ORDERED: CALC-205 PO (09:28)
[2024-04-21] MEDS ORDERED: THERTAB52 PO (09:28)
[2024-04-21] MEDS ORDERED: CLAR10CA3 PO (09:28)
[2024-04-21] MEDS ORDERED: IRBE150T27 PO (09:28)
[2024-04-21] MEDS ORDERED: ACET-683 PO (09:28)
[2024-04-21] MEDS ORDERED: CYAN-1 PO (09:28)
[2024-04-21] MEDS ORDERED: METO50TA7 PO (09:28)
[2024-04-21] MEDS ORDERED: VITA200044 PO (09:28)
[2024-04-21] MEDS ORDERED: HOME MED LIST COMPLETE! XX SCH (09:30)
[2024-04-21] MEDS ORDERED: LORATADINE 10 MG TAB PO PRN (09:40)
[2024-04-21] MEDS ORDERED: ACETAMINOPHEN 500 MG TAB PO PRN (09:40)
[2024-04-21] MEDS: QUEtiapine FUMARATE 50MG TAB PO SCH (11:03)
[2024-04-21] MEDS: METOPROLOL TART 50 MG TAB PO SCH (11:03)
[2024-04-21] MEDS: FOLIC ACID 1MG TAB PO SCH (11:03)
[2024-04-21] MEDS: PERCOCET 5MG/325MG TAB PO PRN (11:03)
[2024-04-21] MEDS: THIAMINE 100 MG TAB PO SCH (11:03)
[2024-04-21] MEDS: MULTIVITAMINS/MINERALS THERAP 1 TAB PO SCH (11:04)
[2024-04-21] MEDS: ASPIRIN 81MG ENTERIC TABLET PO SCH (11:04)
[2024-04-21 12:37] LABS: BLOOD UREA NITROGEN 6 MG/DL (9-23); CALCIUM LEVEL 9.4 MG/DL (8.3-10.6); CARBON DIOXIDE LEVEL 24 MMOL/L (20-31); CHLORIDE LEVEL 96 MMOL/L (98-107); CREATININE FOR GFR 0.52 MG/DL (0.55-1.30); GLOMERULAR FILTRATION RATE > 60.0 (>39); GLUCOSE, FASTING 108 MG/DL (74-106); POTASSIUM SERUM 4.2 MMOL/L (3.5-5.1); SODIUM LEVEL 127 MMOL/L (136-145)
[2024-04-21] MEDS: NS 1,000 ML IV SCH (13:33)
[2024-04-21 14:02] VITALS: BP 168/70; TEMP 98.4; O2SAT 92
[2024-04-21 14:42] VITALS: BP 146/89
[2024-04-21] MEDS: OXAZEPAM 15MG CAP PO SCH (14:49)
[2024-04-21 14:51] VITALS: BP 149/89
[2024-04-21 16:00] VITALS: BP 90/44; TEMP 97.5; O2SAT 98
[2024-04-21 17:40] LABS: BASO # 0.1 10^3/uL (0.0-0.2); BASO % 0.5 % (0.0-1.0); EOS % 0.3 % (0.0-3.0); HEMATOCRIT 37.3 % (36.0-47.0); HEMOGLOBIN 13.1 g/dl (12.0-15.5); LYMPH # 1.1 10^3/uL (1.5-5.0); LYMPH % 10.7 % (24.0-44.0); MEAN CORPUSCULAR HEMOGLOBIN 34.7 pg (27.0-33.0); MEAN CORPUSCULAR HGB CONC 35.1 g/dl (32.0-36.5); MEAN CORPUSCULAR VOLUME 98.9 fl (80.0-96.0); MONO # 0.7 10^3/uL (0.0-0.8); MONO % 7.1 % (2.0-8.0); NEUTROPHILS # 8.2 10^3/uL (1.5-8.5); NEUTROPHILS % 80.8 % (36.0-66.0); PLATELET COUNT, AUTOMATED 135 10^3/uL (150-450); RED BLOOD COUNT 3.77 10^6/uL (4.00-5.40); WHITE BLOOD COUNT 10.1 10^3/uL (4.0-10.0)
[2024-04-21 17:59] LABS: BLOOD UREA NITROGEN 5 MG/DL (9-23); CALCIUM LEVEL 9.4 MG/DL (8.3-10.6); CARBON DIOXIDE LEVEL 27 MMOL/L (20-31); CHLORIDE LEVEL 98 MMOL/L (98-107); CREATININE FOR GFR 0.59 MG/DL (0.55-1.30); GLOMERULAR FILTRATION RATE > 60.0 (>39); GLUCOSE, FASTING 107 MG/DL (74-106); POTASSIUM SERUM 4.4 MMOL/L (3.5-5.1); SODIUM LEVEL 128 MMOL/L (136-145)
[2024-04-21 19:00] VITALS: BP 148/72
[2024-04-21 20:18] VITALS: BP 114/56; TEMP 98.1; O2SAT 91
[2024-04-22] VITALS (7 sets, daily range): BP systolic 140–172; BP diastolic 63–77; TEMP 97.5–98.3; O2SAT 94–99
[2024-04-22 07:22] LABS: BASO # 0.1 10^3/uL (0.0-0.2); BASO % 0.6 % (0.0-1.0); EOS # 0.1 10^3/uL (0.0-0.5); EOS % 1.1 % (0.0-3.0); HEMATOCRIT 36.3 % (36.0-47.0); HEMOGLOBIN 12.3 g/dl (12.0-15.5); LYMPH # 0.9 10^3/uL (1.5-5.0); LYMPH % 11.3 % (24.0-44.0); MEAN CORPUSCULAR HEMOGLOBIN 34.3 pg (27.0-33.0); MEAN CORPUSCULAR HGB CONC 33.9 g/dl (32.0-36.5); MEAN CORPUSCULAR VOLUME 101.1 fl (80.0-96.0); MONO # 0.6 10^3/uL (0.0-0.8); NEUTROPHILS # 6.6 10^3/uL (1.5-8.5); NEUTROPHILS % 79.4 % (36.0-66.0); PLATELET COUNT, AUTOMATED 116 10^3/uL (150-450); RED BLOOD COUNT 3.59 10^6/uL (4.00-5.40); WHITE BLOOD COUNT 8.3 10^3/uL (4.0-10.0)
[2024-04-22 07:46] LABS: BLOOD UREA NITROGEN 6 MG/DL (9-23); CALCIUM LEVEL 9.2 MG/DL (8.3-10.6); CARBON DIOXIDE LEVEL 28 MMOL/L (20-31); CHLORIDE LEVEL 101 MMOL/L (98-107); CREATININE FOR GFR 0.63 MG/DL (0.55-1.30); GLOMERULAR FILTRATION RATE > 60.0 (>39); GLUCOSE, FASTING 91 MG/DL (74-106); MAGNESIUM LEVEL 1.7 MG/DL (1.8-2.4); SODIUM LEVEL 133 MMOL/L (136-145)
[2024-04-22] MEDS: MAG SULF 1GM/100ML (MAG RUN) 1 GM in IV 1 EA IV ONE (08:17)
[2024-04-22] MEDS ORDERED: POTASSIUM CHLORIDE 10MEQ SR TABLET PO SCH (09:00)
[2024-04-22] MEDS: OXAZEPAM 10MG CAP PO SCH (13:46)
[2024-04-22 18:13] LABS: HEMATOCRIT 37.2 % (36.0-47.0); HEMOGLOBIN 12.5 g/dl (12.0-15.5)
[2024-04-22 18:42] LABS: BLOOD UREA NITROGEN 8 MG/DL (9-23); CALCIUM LEVEL 9.1 MG/DL (8.3-10.6); CARBON DIOXIDE LEVEL 26 MMOL/L (20-31); CHLORIDE LEVEL 104 MMOL/L (98-107); CREATININE FOR GFR 0.57 MG/DL (0.55-1.30); GLOMERULAR FILTRATION RATE > 60.0 (>39); GLUCOSE, FASTING 147 MG/DL (74-106); PHOSPHORUS LEVEL 2.9 MG/DL (2.4-5.1); POTASSIUM SERUM 4.4 MMOL/L (3.5-5.1); SODIUM LEVEL 133 MMOL/L (136-145)
[2024-04-22] MEDS: HEPARIN SOD (PORCINE) 5000UNITS/ML 1ML VIAL/SYRINGE SQ SCH (21:27)
[2024-04-22] MEDS: DULoxetine 20MG CAP (CYMBALTA) PO SCH (21:28)
[2024-04-22] MEDS: MORPHINE 2 MG/ML 1ML VIAL IV PRN (21:29)
[2024-04-22] MEDS: LORazepam 2 MG TAB PO PRN (23:38)
[2024-04-23] VITALS (16 sets, daily range): BP systolic 140–220; BP diastolic 64–136; TEMP 97–97.7; O2SAT 90–96
[2024-04-23] MEDS: hydrALAZINE 20MG/ML 1ML VIAL IV ONE ×2 (02:10→08:11)
[2024-04-23] MEDS: LABETALOL 100MG/20ML VIAL IV STA (02:54)
[2024-04-23 03:42] LABS: HEMATOCRIT 37.1 % (36.0-47.0); HEMOGLOBIN 12.8 g/dl (12.0-15.5); MEAN CORPUSCULAR HEMOGLOBIN 34.7 pg (27.0-33.0); MEAN CORPUSCULAR HGB CONC 34.5 g/dl (32.0-36.5); MEAN CORPUSCULAR VOLUME 100.5 fl (80.0-96.0); PLATELET COUNT, AUTOMATED 124 10^3/uL (150-450); RED BLOOD COUNT 3.69 10^6/uL (4.00-5.40); WHITE BLOOD COUNT 9.3 10^3/uL (4.0-10.0)
[2024-04-23 03:53] LABS: INR 0.94; PARTIAL THROMBOPLASTIN TIME 28.9 SECONDS (24.8-34.2); PROTHROMBIN TIME 12.9 SECONDS (12.5-14.5)
[2024-04-23 04:00] LABS: ALBUMIN 3.2 G/DL (3.2-5.2); ALKALINE PHOSPHATASE 91 U/L (35-104); ALT/SGPT 16 U/L (7.0-40); AST/SGOT 23 U/L (<34); BILIRUBIN,TOTAL 0.7 MG/DL (0.3-1.2); BLOOD UREA NITROGEN 5 MG/DL (9-23); CALCIUM LEVEL 9.1 MG/DL (8.3-10.6); CARBON DIOXIDE LEVEL 26 MMOL/L (20-31); CHLORIDE LEVEL 104 MMOL/L (98-107); CREATININE FOR GFR 0.53 MG/DL (0.55-1.30); GLOMERULAR FILTRATION RATE > 60.0 (>39); GLUCOSE, FASTING 137 MG/DL (74-106); SODIUM LEVEL 133 MMOL/L (136-145); TOTAL PROTEIN 5.7 G/DL (5.7-8.2)
[2024-04-23 06:51] LABS: BASO % 0.5 % (0.0-1.0); EOS % 0.2 % (0.0-3.0); HEMATOCRIT 35.4 % (36.0-47.0); HEMOGLOBIN 12.2 g/dl (12.0-15.5); LYMPH # 0.7 10^3/uL (1.5-5.0); MEAN CORPUSCULAR HEMOGLOBIN 34.6 pg (27.0-33.0); MEAN CORPUSCULAR HGB CONC 34.5 g/dl (32.0-36.5); MEAN CORPUSCULAR VOLUME 100.3 fl (80.0-96.0); MONO # 0.5 10^3/uL (0.0-0.8); MONO % 6.2 % (2.0-8.0); NEUTROPHILS # 7.2 10^3/uL (1.5-8.5); NEUTROPHILS % 84.5 % (36.0-66.0); PLATELET COUNT, AUTOMATED 118 10^3/uL (150-450); RED BLOOD COUNT 3.53 10^6/uL (4.00-5.40); WHITE BLOOD COUNT 8.5 10^3/uL (4.0-10.0)
[2024-04-23 07:18] LABS: BLOOD UREA NITROGEN 6 MG/DL (9-23); CALCIUM LEVEL 9.1 MG/DL (8.3-10.6); CARBON DIOXIDE LEVEL 26 MMOL/L (20-31); CHLORIDE LEVEL 104 MMOL/L (98-107); CREATININE FOR GFR 0.46 MG/DL (0.55-1.30); GLOMERULAR FILTRATION RATE > 60.0 (>39); GLUCOSE, FASTING 126 MG/DL (74-106); MAGNESIUM LEVEL 1.7 MG/DL (1.8-2.4); POTASSIUM SERUM 3.9 MMOL/L (3.5-5.1); SODIUM LEVEL 135 MMOL/L (136-145)
[2024-04-23] MEDS: MAG SULF 1GM/100ML (MAG RUN) 1 GM in IV 1 EA IV SCH (08:34)
[2024-04-23 09:36] LABS: CHOLESTEROL LEVEL 165 MG/DL (<200); CHOLESTEROL RISK RATIO 2.03 (<5); TRIGLYCERIDES LEVEL 90 MG/DL (<150)
[2024-04-23 09:48] LABS: HEMOGLOBIN A1c 4.8 % (4.0-6.0)
[2024-04-23] MEDS: amLODIPine 5 MG TAB PO ONE (14:03)
[2024-04-23] MEDS: OXAZEPAM 15MG CAP PO SCH (14:05)
[2024-04-23] MEDS: ATORVASTATIN 20 MG TAB PO SCH (21:20)
[2024-04-24 03:49] VITALS: BP 144/82; TEMP 97.3; O2SAT 93
[2024-04-24 07:16] LABS: BASO # 0.1 10^3/uL (0.0-0.2); BASO % 0.8 % (0.0-1.0); EOS # 0.4 10^3/uL (0.0-0.5); EOS % 4.7 % (0.0-3.0); HEMATOCRIT 32.2 % (36.0-47.0); HEMOGLOBIN 11.1 g/dl (12.0-15.5); LYMPH # 1.4 10^3/uL (1.5-5.0); LYMPH % 18.1 % (24.0-44.0); MEAN CORPUSCULAR HEMOGLOBIN 34.7 pg (27.0-33.0); MEAN CORPUSCULAR HGB CONC 34.5 g/dl (32.0-36.5); MEAN CORPUSCULAR VOLUME 100.6 fl (80.0-96.0); MONO # 0.8 10^3/uL (0.0-0.8); MONO % 10.2 % (2.0-8.0); NEUTROPHILS # 4.9 10^3/uL (1.5-8.5); NEUTROPHILS % 65.8 % (36.0-66.0); PLATELET COUNT, AUTOMATED 142 10^3/uL (150-450); WHITE BLOOD COUNT 7.5 10^3/uL (4.0-10.0)
[2024-04-24 07:30] LABS: BLOOD UREA NITROGEN 6 MG/DL (9-23); CARBON DIOXIDE LEVEL 27 MMOL/L (20-31); CHLORIDE LEVEL 101 MMOL/L (98-107); CREATININE FOR GFR 0.53 MG/DL (0.55-1.30); GLOMERULAR FILTRATION RATE > 60.0 (>39); GLUCOSE, FASTING 87 MG/DL (74-106); MAGNESIUM LEVEL 1.9 MG/DL (1.8-2.4); POTASSIUM SERUM 3.9 MMOL/L (3.5-5.1); SODIUM LEVEL 135 MMOL/L (136-145)
[2024-04-24 08:00] VITALS: BP 158/70; TEMP 97.4; O2SAT 94
[2024-04-24] MEDS: SENOKOT S TAB PO SCH (09:22)
[2024-04-24] MEDS: amLODIPine 5 MG TAB PO SCH (09:23)
[2024-04-24] MEDS: THIAMINE 100 MG TAB PO SCH (09:23)
[2024-04-24] MEDS: oxyCODONE 5MG TAB PO PRN (10:31)
[2024-04-24] MEDS: MIRALAX *UNIT DOSE* 17GM PACKET PO PRN (11:49)
[2024-04-24 13:14] VITALS: BP 136/63; TEMP 97.4; O2SAT 94
[2024-04-24 15:35] VITALS: BP 135/65; TEMP 97.4; O2SAT 94
[2024-04-24 19:31] VITALS: BP 142/70; TEMP 97.9; O2SAT 95
[2024-04-24] MEDS: OXAZEPAM 10MG CAP PO SCH (20:44)
[2024-04-24] MEDS ORDERED: OXAZEPAM 15MG CAP PO SCH (21:00)
[2024-04-24 23:33] VITALS: BP 138/62; TEMP 97.5; O2SAT 94
[2024-04-25] VITALS (7 sets, daily range): BP systolic 114–192; BP diastolic 52–104; TEMP 97–98.2; O2SAT 92–96
[2024-04-25 06:35] LABS: BASO # 0.1 10^3/uL (0.0-0.2); BASO % 0.7 % (0.0-1.0); EOS # 0.4 10^3/uL (0.0-0.5); EOS % 6.4 % (0.0-3.0); HEMATOCRIT 34.5 % (36.0-47.0); HEMOGLOBIN 11.8 g/dl (12.0-15.5); LYMPH # 1.8 10^3/uL (1.5-5.0); LYMPH % 26.5 % (24.0-44.0); MEAN CORPUSCULAR HEMOGLOBIN 34.8 pg (27.0-33.0); MEAN CORPUSCULAR HGB CONC 34.2 g/dl (32.0-36.5); MEAN CORPUSCULAR VOLUME 101.8 fl (80.0-96.0); MONO # 0.8 10^3/uL (0.0-0.8); MONO % 12.1 % (2.0-8.0); NEUTROPHILS # 3.6 10^3/uL (1.5-8.5); NEUTROPHILS % 53.6 % (36.0-66.0); PLATELET COUNT, AUTOMATED 158 10^3/uL (150-450); RED BLOOD COUNT 3.39 10^6/uL (4.00-5.40); WHITE BLOOD COUNT 6.8 10^3/uL (4.0-10.0)
[2024-04-25] MEDS: oxyCODONE 5MG TAB PO PRN (06:54)
[2024-04-25 07:07] LABS: BLOOD UREA NITROGEN 7 MG/DL (9-23); CALCIUM LEVEL 9.7 MG/DL (8.3-10.6); CARBON DIOXIDE LEVEL 26 MMOL/L (20-31); CHLORIDE LEVEL 100 MMOL/L (98-107); GLOMERULAR FILTRATION RATE > 60.0 (>39); GLUCOSE, FASTING 91 MG/DL (74-106); MAGNESIUM LEVEL 1.9 MG/DL (1.8-2.4); POTASSIUM SERUM 4.2 MMOL/L (3.5-5.1); SODIUM LEVEL 133 MMOL/L (136-145)
[2024-04-25] MEDS: HYDROMORPHONE HCL 0.5 MG/ 0.5 ML SYRINGE IV PRN (08:14)
[2024-04-25] MEDS: BISACODYL 10MG SUPP PR PRN (17:34)
[2024-04-26] VITALS (12 sets, daily range): BP systolic 127–163; BP diastolic 58–68; TEMP 97.7–98; O2SAT 88–100
[2024-04-26] MEDS: CYCLOBENZAPRINE 5MG TABLET PO PRN (03:32)
[2024-04-26] MEDS: DOCUSATE SODIUM 100MG CAPSULE PO PRN (03:32)
[2024-04-26 06:39] LABS: BASO # 0.1 10^3/uL (0.0-0.2); EOS # 0.4 10^3/uL (0.0-0.5); EOS % 5.1 % (0.0-3.0); HEMATOCRIT 33.1 % (36.0-47.0); HEMOGLOBIN 11.1 g/dl (12.0-15.5); LYMPH # 1.3 10^3/uL (1.5-5.0); LYMPH % 17.8 % (24.0-44.0); MEAN CORPUSCULAR HEMOGLOBIN 34.6 pg (27.0-33.0); MEAN CORPUSCULAR HGB CONC 33.5 g/dl (32.0-36.5); MEAN CORPUSCULAR VOLUME 103.1 fl (80.0-96.0); MONO # 1.1 10^3/uL (0.0-0.8); MONO % 15.3 % (2.0-8.0); NEUTROPHILS # 4.3 10^3/uL (1.5-8.5); NEUTROPHILS % 60.2 % (36.0-66.0); PLATELET COUNT, AUTOMATED 166 10^3/uL (150-450); RED BLOOD COUNT 3.21 10^6/uL (4.00-5.40); WHITE BLOOD COUNT 7.2 10^3/uL (4.0-10.0)
[2024-04-26 07:04] LABS: BLOOD UREA NITROGEN 7 MG/DL (9-23); CALCIUM LEVEL 9.5 MG/DL (8.3-10.6); CARBON DIOXIDE LEVEL 32 MMOL/L (20-31); CHLORIDE LEVEL 103 MMOL/L (98-107); CREATININE FOR GFR 0.65 MG/DL (0.55-1.30); GLOMERULAR FILTRATION RATE > 60.0 (>39); GLUCOSE, FASTING 97 MG/DL (74-106); MAGNESIUM LEVEL 1.9 MG/DL (1.8-2.4); POTASSIUM SERUM 4.7 MMOL/L (3.5-5.1); SODIUM LEVEL 138 MMOL/L (136-145)
[2024-04-26] MEDS: LACTULOSE 20GM/30ML SYRUP UDC PO ONE (09:34)
[2024-04-26] MEDS: FLEET ENEMA PR ONE (09:36)
[2024-04-26] MEDS ORDERED: FOLI1TAB11 PO (12:51)
[2024-04-26] MEDS ORDERED: ATOR1TAB21 PO (12:51)
[2024-04-26] MEDS ORDERED: CYCL5TAB4 PO (12:51)
[2024-04-26] MEDS ORDERED: SENN-52 PO (12:51)
[2024-04-26] MEDS ORDERED: AMLO1TAB24 PO (12:51)
[2024-04-26] MEDS ORDERED: OXYC-517 PO (12:51)
[2024-04-26] MEDS ORDERED: HYDR0.5S8 IV (12:51)
[2024-04-26] MEDS ORDERED: BISA10SU PR (12:51)
[2024-04-26] MEDS ORDERED: THIA100TA PO (12:51)
== END 2024-04-26 15:26 | DRG 536 ==
LOC: EDBD 05:06 → M ED 05:06 → M ED INP 10:05 → M PCU 13:50
PROVIDERS: ADMIT Internal Medicine; ATTEND Internal Medicine
PROC: B246ZZZ Ultrasonography of Right and Left Heart (ICD-10-PCS; principal; 2024-04-24)
DX: S32.512A Fracture of superior rim of left pubis, initial encounter for closed fracture (principal); E87.1 Hypo-osmolality and hyponatremia; I50.32 Chronic diastolic (congestive) heart failure; I11.0 Hypertensive heart disease with heart failure; I25.10 Atherosclerotic heart disease of native coronary artery without angina pectoris; D50.9 Iron deficiency anemia, unspecified; S32.592A Other specified fracture of left pubis, initial encounter for closed fracture; W06.XXXA Fall from bed, initial encounter; Y92.013 Bedroom of single-family (private) house as the place of occurrence of the external cause; Y93.89 Activity, other specified; Y99.8 Other external cause status; F10.10 Alcohol abuse, uncomplicated; R29.6 Repeated falls; I16.0 Hypertensive urgency; E83.42 Hypomagnesemia; K59.03 Drug induced constipation; R33.9 Retention of urine, unspecified; G47.33 Obstructive sleep apnea (adult) (pediatric); T40.2X5A Adverse effect of other opioids, initial encounter; M81.0 Age-related osteoporosis without current pathological fracture; E78.5 Hyperlipidemia, unspecified; F03.90 Unspecified dementia, unspecified severity, without behavioral disturbance, psychotic disturbance, mood disturbance, and anxiety; E74.39 Other disorders of intestinal carbohydrate absorption; G50.0 Trigeminal neuralgia; Z98.84 Bariatric surgery status; Z90.49 Acquired absence of other specified parts of digestive tract; Z87.891 Personal history of nicotine dependence

== ENCOUNTER 2024-04-26 13:18 | Inpatient (IN) | payer MEDICARE, BC ==
[~2024-04-26] VITALS: Ht 160 cm; Wt 63.2 kg
[~2024-04-26 13:18] MED LIST changes: +ACET-683 PO; +AMLO1TAB24 PO; +ATOR1TAB21 PO; +BISA10SU PR; +CALC-205 PO; +CLAR10CA3 PO; +CYAN-1 PO; +DULO20CA27 PO; +FOLI1TAB11 PO; +HYDR0.5S8 IV; +IRBE150T27 PO; +METO50TA7 PO; +OXYC-517 PO; +SENN-52 PO; +THERTAB52 PO; +THIA100TA PO; +VITA200044 PO
[2024-04-26] MEDS ORDERED: LORATADINE 10 MG TAB PO PRN (14:45)
[2024-04-26] MEDS ORDERED: MAALOX 30 ML SUSP *UDC PO PRN (15:10)
[2024-04-26] MEDS ORDERED: BISACODYL 10MG SUPP PR PRN (15:10)
[2024-04-26] MEDS ORDERED: ONDANSETRON 4MG TAB PO PRN (15:10)
[2024-04-26] MEDS ORDERED: FLEET ENEMA PR PRN (15:10)
[2024-04-26 16:00] VITALS: BP 166/75; TEMP 98; O2SAT 71
[2024-04-26] MEDS: IBUPROFEN 400MG TAB PO SCH (17:35)
[2024-04-26] MEDS: traMADol 50 MG TAB PO SCH ×2 (17:36→20:13)
[2024-04-26 20:00] VITALS: BP 137/66; TEMP 97.8; O2SAT 97
[2024-04-26] MEDS: HEPARIN SOD (PORCINE) 5000UNITS/ML 1ML VIAL/SYRINGE SC SCH (20:10)
[2024-04-26] MEDS: IRBESARTAN 150MG TAB PO SCH (20:11)
[2024-04-26] MEDS: ATORVASTATIN 20 MG TAB PO SCH (20:12)
[2024-04-26] MEDS: ACETAMINOPHEN 500 MG TAB PO SCH (20:13)
[2024-04-26] MEDS: SENOKOT S TAB PO SCH (20:13)
[2024-04-26] MEDS: METOPROLOL TART 50 MG TAB PO SCH (20:14)
[2024-04-27 03:30] VITALS: BP 163/74; TEMP 97.4; O2SAT 92
[2024-04-27 07:16] LABS: BASO # 0.1 10^3/uL (0.0-0.2); BASO % 0.9 % (0.0-1.0); EOS # 0.5 10^3/uL (0.0-0.5); EOS % 6.5 % (0.0-3.0); HEMATOCRIT 36.6 % (36.0-47.0); HEMOGLOBIN 12.2 g/dl (12.0-15.5); LYMPH # 2.1 10^3/uL (1.5-5.0); LYMPH % 26.7 % (24.0-44.0); MEAN CORPUSCULAR HEMOGLOBIN 33.8 pg (27.0-33.0); MEAN CORPUSCULAR HGB CONC 33.3 g/dl (32.0-36.5); MEAN CORPUSCULAR VOLUME 101.4 fl (80.0-96.0); MONO # 0.9 10^3/uL (0.0-0.8); MONO % 11.8 % (2.0-8.0); NEUTROPHILS # 4.1 10^3/uL (1.5-8.5); NEUTROPHILS % 53.1 % (36.0-66.0); PLATELET COUNT, AUTOMATED 202 10^3/uL (150-450); RED BLOOD COUNT 3.61 10^6/uL (4.00-5.40); WHITE BLOOD COUNT 7.7 10^3/uL (4.0-10.0)
[2024-04-27 07:44] LABS: ALBUMIN 3.2 G/DL (3.2-5.2); ALKALINE PHOSPHATASE 87 U/L (35-104); ALT/SGPT 22 U/L (7.0-40); AST/SGOT 35 U/L (<34); BILIRUBIN,TOTAL 1.1 MG/DL (0.3-1.2); BLOOD UREA NITROGEN 7 MG/DL (9-23); CALCIUM LEVEL 10.1 MG/DL (8.3-10.6); CARBON DIOXIDE LEVEL 27 MMOL/L (20-31); CHLORIDE LEVEL 103 MMOL/L (98-107); CREATININE FOR GFR 0.67 MG/DL (0.55-1.30); GLOMERULAR FILTRATION RATE > 60.0 (>39); GLUCOSE, FASTING 77 MG/DL (74-106); POTASSIUM SERUM 4.2 MMOL/L (3.5-5.1); SODIUM LEVEL 139 MMOL/L (136-145); TOTAL PROTEIN 5.8 G/DL (5.7-8.2)
[2024-04-27] MEDS: MIRALAX *UNIT DOSE* 17GM PACKET PO SCH (09:00)
[2024-04-27] MEDS: OMEPRAZOLE 20MG CAP PO SCH (09:19)
[2024-04-27] MEDS: ASPIRIN 81MG ENTERIC TABLET PO SCH (09:20)
[2024-04-27] MEDS: FOLIC ACID 1MG TAB PO SCH (09:20)
[2024-04-27] MEDS: CYANOCOBALAMIN 500 MCG TAB PO SCH (09:20)
[2024-04-27] MEDS: THIAMINE 100 MG TAB PO SCH (09:21)
[2024-04-27] MEDS: amLODIPine 5 MG TAB PO SCH (09:21)
[2024-04-27 12:00] VITALS: BP 148/73; TEMP 97.3; O2SAT 95
[2024-04-27 20:00] VITALS: BP 150/78; TEMP 97.5; O2SAT 96
[2024-04-27] MEDS: traMADol 50 MG TAB PO SCH (20:10)
[2024-04-28 04:00] VITALS: BP 170/70; TEMP 97.6; O2SAT 95
[2024-04-28] MEDS: CYCLOBENZAPRINE 5MG TABLET PO PRN (04:40)
[2024-04-28] MEDS: SENOKOT S TAB PO SCH (09:35)
[2024-04-28] MEDS: FERROUS GLUCONATE 324 MG TAB PO SCH (09:36)
[2024-04-28 12:00] VITALS: BP 166/70; TEMP 97.2; O2SAT 98
[2024-04-28] MEDS: **hydrALAZINE HCL** 25 MG TAB PO PRN (13:22)
[2024-04-28] MEDS: MOM 30ML SUSPENSION UDC PO PRN (14:12)
[2024-04-28 15:42] VITALS: BP 152/65
[2024-04-28 16:24] VITALS: BP 178/72
[2024-04-28] MEDS: hydroCHLOROthiazide 12.5 MG CAPSULE PO ONE (16:24)
[2024-04-28] MEDS: BISACODYL 5MG TAB PO PRN (17:35)
[2024-04-28 17:40] VITALS: BP 162/58
[2024-04-28] MEDS: cloNIDine 0.1MG TABLET PO ONE (18:57)
[2024-04-28 20:00] VITALS: BP 132/62; TEMP 97.2; O2SAT 96
[2024-04-28] MEDS: traMADol 50 MG TAB PO PRN (22:01)
[2024-04-29 04:00] VITALS: BP 153/70; TEMP 97.1; O2SAT 98
[2024-04-29 07:20] VITALS: BP 149/67
[2024-04-29] MEDS: hydroCHLOROthiazide 12.5 MG CAPSULE PO SCH (07:22)
[2024-04-29] MEDS: FUROSEMIDE 20 MG TAB PO ONE (10:12)
[2024-04-29] MEDS: POTASSIUM CHLORIDE 10MEQ SR TABLET PO ONE (10:12)
[2024-04-29 12:00] VITALS: BP 141/66; TEMP 97.4; O2SAT 99
[2024-04-29 19:55] VITALS: BP 149/67; TEMP 97.5; O2SAT 98
[2024-04-30 03:45] VITALS: BP 138/60; TEMP 97.9; O2SAT 99
[2024-04-30 07:40] LABS: BASO # 0.1 10^3/uL (0.0-0.2); BASO % 1.2 % (0.0-1.0); EOS # 0.5 10^3/uL (0.0-0.5); EOS % 7.5 % (0.0-3.0); HEMATOCRIT 33.7 % (36.0-47.0); HEMOGLOBIN 11.3 g/dl (12.0-15.5); LYMPH # 1.4 10^3/uL (1.5-5.0); LYMPH % 20.4 % (24.0-44.0); MEAN CORPUSCULAR HEMOGLOBIN 34.7 pg (27.0-33.0); MEAN CORPUSCULAR HGB CONC 33.5 g/dl (32.0-36.5); MEAN CORPUSCULAR VOLUME 103.4 fl (80.0-96.0); MONO # 0.7 10^3/uL (0.0-0.8); MONO % 10.2 % (2.0-8.0); NEUTROPHILS # 4.2 10^3/uL (1.5-8.5); NEUTROPHILS % 60.3 % (36.0-66.0); PLATELET COUNT, AUTOMATED 257 10^3/uL (150-450); RED BLOOD COUNT 3.26 10^6/uL (4.00-5.40)
[2024-04-30] MEDS: FUROSEMIDE 20 MG TAB PO SCH (08:22)
[2024-04-30 09:05] LABS: BLOOD UREA NITROGEN 15 MG/DL (9-23); CALCIUM LEVEL 9.8 MG/DL (8.3-10.6); CARBON DIOXIDE LEVEL 27 MMOL/L (20-31); CHLORIDE LEVEL 101 MMOL/L (98-107); CREATININE FOR GFR 0.87 MG/DL (0.55-1.30); GLOMERULAR FILTRATION RATE > 60.0 (>39); GLUCOSE, FASTING 51 MG/DL (74-106); SODIUM LEVEL 138 MMOL/L (136-145)
[2024-04-30 12:00] VITALS: BP_SYST 123; BP_SYST 128; BP_DIAS 62; BP_DIAS 76; TEMP 97.2; TEMP 98.2; O2SAT 98
[2024-04-30] MEDS ORDERED: POTA-136 PO (15:27)
[2024-04-30] MEDS ORDERED: OMEP-173 PO (15:27)
[2024-04-30] MEDS ORDERED: METO50TA7 PO (15:27)
[2024-04-30] MEDS ORDERED: FURO20TA2 PO (15:27)
[2024-04-30] MEDS ORDERED: TRAM50TA2 PO (15:27)
[2024-04-30] MEDS ORDERED: IBUP-1114 PO (15:27)
[2024-04-30] MEDS ORDERED: CYCL5TAB4 PO (15:27)
[2024-04-30] MEDS ORDERED: FERR32TA PO (15:27)
[2024-04-30] MEDS ORDERED: SENN-52 PO (15:27)
[2024-04-30] MEDS ORDERED: IRBE150T27 PO (15:27)
[2024-04-30 20:00] VITALS: BP 128/59; TEMP 97.1; O2SAT 96
[2024-05-01 04:00] VITALS: BP 156/69; TEMP 96.8; O2SAT 100
[2024-05-01 05:39] VITALS: BP 136/63
[2024-05-01] MEDS: POTASSIUM CHLORIDE 10MEQ SR TABLET PO SCH (09:13)
[2024-05-01 12:00] VITALS: BP 130/61; TEMP 97.9; O2SAT 98
[2024-05-01 20:00] VITALS: BP 151/68; TEMP 96.7; O2SAT 98
[2024-05-02 05:00] VITALS: BP 139/63; TEMP 97.1; O2SAT 97
[2024-05-02 12:00] VITALS: BP_SYST 126; BP_SYST 152; BP_DIAS 67; BP_DIAS 82; TEMP 97.2; TEMP 97.8; O2SAT 100; O2SAT 95
[2024-05-02 20:03] VITALS: BP 169/69; TEMP 96.9; O2SAT 97
[2024-05-03 04:59] VITALS: BP 138/60; TEMP 97.6; O2SAT 97
[2024-05-03 07:46] VITALS: BP 150/68
[2024-05-03 07:59] LABS: BASO # 0.1 10^3/uL (0.0-0.2); BASO % 1.6 % (0.0-1.0); EOS # 0.6 10^3/uL (0.0-0.5); EOS % 7.7 % (0.0-3.0); HEMATOCRIT 35.6 % (36.0-47.0); HEMOGLOBIN 11.7 g/dl (12.0-15.5); LYMPH # 1.4 10^3/uL (1.5-5.0); LYMPH % 18.3 % (24.0-44.0); MEAN CORPUSCULAR HEMOGLOBIN 33.8 pg (27.0-33.0); MEAN CORPUSCULAR HGB CONC 32.9 g/dl (32.0-36.5); MEAN CORPUSCULAR VOLUME 102.9 fl (80.0-96.0); MONO # 0.6 10^3/uL (0.0-0.8); MONO % 7.5 % (2.0-8.0); NEUTROPHILS # 4.7 10^3/uL (1.5-8.5); NEUTROPHILS % 64.2 % (36.0-66.0); PLATELET COUNT, AUTOMATED 248 10^3/uL (150-450); RED BLOOD COUNT 3.46 10^6/uL (4.00-5.40); WHITE BLOOD COUNT 7.4 10^3/uL (4.0-10.0)
[2024-05-03 08:26] LABS: CALCIUM LEVEL 9.5 MG/DL (8.3-10.6); CREATININE FOR GFR 1.02 MG/DL (0.55-1.30); GLOMERULAR FILTRATION RATE 56.1 (>39); POTASSIUM SERUM 3.9 MMOL/L (3.5-5.1)
[2024-05-03 12:00] VITALS: BP 124/67; TEMP 97.3; O2SAT 98
[2024-05-03 19:22] VITALS: BP 153/71; TEMP 97.6; O2SAT 98
[2024-05-04] MEDS: traMADol 50 MG TAB PO PRN (02:43)
[2024-05-04 05:22] VITALS: BP 126/59; TEMP 97.1; O2SAT 95
[2024-05-04 08:30] VITALS: BP 124/60
[2024-05-04] MEDS ORDERED: AMLO1TAB24 PO (10:12)
== END 2024-05-04 09:50 | disposition home or self-care (01) | DRG 560 ==
LOC: M PM&R 15:30
PROVIDERS: ADMIT Physical Medicine & Rehabilitation; ATTEND Physical Medicine & Rehabilitation
DX: S32.810D Multiple fractures of pelvis with stable disruption of pelvic ring, subsequent encounter for fracture with routine healing (principal); I50.32 Chronic diastolic (congestive) heart failure; E87.1 Hypo-osmolality and hyponatremia; F10.20 Alcohol dependence, uncomplicated; D50.9 Iron deficiency anemia, unspecified; I25.10 Atherosclerotic heart disease of native coronary artery without angina pectoris; G47.33 Obstructive sleep apnea (adult) (pediatric); F39 Unspecified mood [affective] disorder; K21.9 Gastro-esophageal reflux disease without esophagitis; R42 Dizziness and giddiness; R29.6 Repeated falls; K59.00 Constipation, unspecified; F17.210 Nicotine dependence, cigarettes, uncomplicated; M54.50 Low back pain, unspecified; R41.82 Altered mental status, unspecified; R41.3 Other amnesia; M81.0 Age-related osteoporosis without current pathological fracture; I16.0 Hypertensive urgency; R33.9 Retention of urine, unspecified; E83.42 Hypomagnesemia; Z74.09 Other reduced mobility; Z74.1 Need for assistance with personal care; Z98.84 Bariatric surgery status; Z79.82 Long term (current) use of aspirin; Z90.49 Acquired absence of other specified parts of digestive tract; Z98.62 Peripheral vascular angioplasty status; Z79.899 Other long term (current) drug therapy; Z91.048 Other nonmedicinal substance allergy status

== ENCOUNTER → 2024-05-17 | Outpatient (CLI) | payer MEDICARE, BC ==
[~2024-05-17] MED LIST changes: +FERR32TA PO; +IBUP-1114 PO; +OMEP-173 PO
== END ==
LOC: M SOG 13:45
PROVIDERS: ATTEND Physician Assistant
DX: S32.502D Unspecified fracture of left pubis, subsequent encounter for fracture with routine healing (principal)

== ENCOUNTER → 2024-06-30 | Outpatient (CLI) | payer MEDICARE, BC | LOC: M SOG 07:56 | PROVIDERS: ATTEND Physician Assistant | DX: S32.502D Unspecified fracture of left pubis, subsequent encounter for fracture with routine healing (principal) ==

== ENCOUNTER → 2024-08-11 | Outpatient (CLI) | payer MEDICARE, BC | LOC: M SOG 07:55 | PROVIDERS: ATTEND Orthopaedic Surgery | DX: S32.502D Unspecified fracture of left pubis, subsequent encounter for fracture with routine healing (principal) ==

== ENCOUNTER → 2024-09-17 | Outpatient (REF) | payer MEDICARE, BC ==
[2024-09-17 14:15] LABS: BASO # 0.1 10^3/uL (0.0-0.2); BASO % 1.2 % (0.0-1.0); EOS # 0.5 10^3/uL (0.0-0.5); EOS % 5.9 % (0.0-3.0); HEMATOCRIT 43.5 % (36.0-47.0); HEMOGLOBIN 13.7 g/dl (12.0-15.5); LYMPH # 1.9 10^3/uL (1.5-5.0); LYMPH % 22.2 % (24.0-44.0); MEAN CORPUSCULAR HEMOGLOBIN 30.9 pg (27.0-33.0); MEAN CORPUSCULAR HGB CONC 31.5 g/dl (32.0-36.5); MEAN CORPUSCULAR VOLUME 98.2 fl (80.0-96.0); MONO # 0.7 10^3/uL (0.0-0.8); MONO % 7.7 % (2.0-8.0); NEUTROPHILS # 5.3 10^3/uL (1.5-8.5); NEUTROPHILS % 62.8 % (36.0-66.0); PLATELET COUNT, AUTOMATED 185 10^3/uL (150-450); RED BLOOD COUNT 4.43 10^6/uL (4.00-5.40); WHITE BLOOD COUNT 8.5 10^3/uL (4.0-10.0)
[2024-09-17 14:23] LABS: IRON (FE) 67 UG/DL (50-170)
[2024-09-17 14:24] LABS: ALBUMIN 3.8 G/DL (3.2-5.2); ALKALINE PHOSPHATASE 91 U/L (35-104); ALT/SGPT 16 U/L (7.0-40); AST/SGOT 18 U/L (<34); BILIRUBIN,TOTAL 0.4 MG/DL (0.3-1.2); BLOOD UREA NITROGEN 15 MG/DL (9-23); CALCIUM LEVEL 9.9 MG/DL (8.3-10.6); CARBON DIOXIDE LEVEL 30 MMOL/L (20-31); CHLORIDE LEVEL 107 MMOL/L (98-107); CHOLESTEROL LEVEL 185 MG/DL (<200); CHOLESTEROL RISK RATIO 3.29 (<5); FERRITIN 100.1 NG/ML (7.3-270.7); FREE T4 1.07 NG/DL (0.89-1.76); GLOMERULAR FILTRATION RATE 75.8 (>39); GLUCOSE, FASTING 90 MG/DL (74-106); HDL CHOLESTEROL 56.1 MG/DL (>40); LDL CHOLESTEROL 103.3 MG/DL (<100); NON-HDL-C 128.9 MG/DL; POTASSIUM SERUM 4.5 MMOL/L (3.5-5.1); SODIUM LEVEL 143 MMOL/L (136-145); TOTAL IRON BINDING CAPACITY 279 UG/DL (250-425); TOTAL PROTEIN 6.3 G/DL (5.7-8.2); TRIGLYCERIDES LEVEL 128 MG/DL (<150)
[2024-09-17 14:25] LABS: FOLATE > 24.0 NG/ML (>5.4); TOTAL 25(OH) VITAMIN D 56.3 NG/ML (20.0-100.0)
[2024-09-17 14:28] LABS: VITAMIN B12 LEVEL > 2000 PG/ML (211-911)
== END ==
LOC: M SFHCADAM 09:41
PROVIDERS: ATTEND Physician Assistant
DX: M54.41 Lumbago with sciatica, right side (principal); M54.42 Lumbago with sciatica, left side; I10 Essential (primary) hypertension; G89.29 Other chronic pain; M81.0 Age-related osteoporosis without current pathological fracture; E78.2 Mixed hyperlipidemia; Z98.84 Bariatric surgery status

== ENCOUNTER → 2024-09-27 | Outpatient (CLI) | payer MEDICARE, BC ==
[2024-09-27 11:12] LABS: BASO # 0.1 10^3/uL (0.0-0.2); BASO % 1.6 % (0.0-1.0); EOS # 0.4 10^3/uL (0.0-0.5); HEMATOCRIT 40.6 % (36.0-47.0); LYMPH # 1.6 10^3/uL (1.5-5.0); LYMPH % 24.5 % (24.0-44.0); MEAN CORPUSCULAR VOLUME 96.7 fl (80.0-96.0); MONO # 0.6 10^3/uL (0.0-0.8); MONO % 8.6 % (2.0-8.0); NEUTROPHILS # 3.7 10^3/uL (1.5-8.5); NEUTROPHILS % 58.7 % (36.0-66.0); PLATELET COUNT, AUTOMATED 225 10^3/uL (150-450); WHITE BLOOD COUNT 6.4 10^3/uL (4.0-10.0)
[2024-09-27 11:16] LABS: ERYTHROCYTE SEDIMENTATION RATE 15 mm/hr (0-30)
[2024-09-27 11:38] LABS: HEPATITIS B SURFACE ANTIBODY NEGATIVE (POSITIVE); THYROID STIMULATING HORMONE 1.645 uIU/ML (0.55-4.78)
[2024-09-27 11:39] LABS: FOLATE > 24.0 NG/ML (>5.4)
[2024-09-27 11:41] LABS: ALBUMIN 3.5 G/DL (3.2-5.2); ALKALINE PHOSPHATASE 91 U/L (35-104); ALT/SGPT 13 U/L (7.0-40); AST/SGOT 20 U/L (<34); BILIRUBIN,TOTAL 0.3 MG/DL (0.3-1.2); BLOOD UREA NITROGEN 16 MG/DL (9-23); CALCIUM LEVEL 9.9 MG/DL (8.3-10.6); CARBON DIOXIDE LEVEL 31 MMOL/L (20-31); CHLORIDE LEVEL 107 MMOL/L (98-107); CREATININE FOR GFR 0.78 MG/DL (0.55-1.30); GLOMERULAR FILTRATION RATE 78.2 (>39); GLUCOSE, FASTING 86 MG/DL (74-106); POTASSIUM SERUM 4.1 MMOL/L (3.5-5.1); SODIUM LEVEL 144 MMOL/L (136-145); TOTAL PROTEIN 6.1 G/DL (5.7-8.2)
[2024-09-27 12:12] LABS: HEPATITIS C VIRUS ABY INDEX < 0.02 INDEX (<0.8)
[2024-09-27 17:09] LABS: RHEUMATOID FACTOR QUANT 11.4 IU/ML (<14)
[2024-09-27 17:10] LABS: VITAMIN B12 LEVEL > 2000 PG/ML (211-911)
[2024-09-28 13:42] LABS: HERPES ZOSTER, VARICELLA IgG 3.63 S/CO (>=1.00)
[2024-09-28 14:12] LABS: HEPATITIS A IgG TOTAL REACTIVE (NON-REACTIVE)
[2024-09-28 16:58] LABS: ANA SCREEN, IFA NEGATIVE (NEGATIVE)
== END ==
LOC: M LAB 09:57
PROVIDERS: ATTEND Psychiatry & Neurology Neurology
DX: G37.9 Demyelinating disease of central nervous system, unspecified (principal); E07.9 Disorder of thyroid, unspecified

== ENCOUNTER → 2025-03-25 | Outpatient (REF) | payer MEDICARE, BC ==
[~2025-03-25] MED LIST changes: +AMIT10TA11 PO; -AMIT10TA7 PO; +CARB-19 PO; -CARB1TAB20 PO
[2025-03-25 13:58] LABS: PLATELET COUNT, AUTOMATED 201 10^3/uL (150-450)
[2025-03-25 14:04] LABS: ALT/SGPT 19.0 U/L (7.0-40); AST/SGOT 23.0 U/L (<34); CALCIUM LEVEL 9.4 MG/DL (8.3-10.6); CARBON DIOXIDE LEVEL 30.0 MMOL/L (20-31); CHLORIDE LEVEL 106.0 MMOL/L (98-107); CREATININE FOR GFR 0.77 MG/DL (0.55-1.30); GLOMERULAR FILTRATION RATE 79.4 (>39); POTASSIUM SERUM 4.0 MMOL/L (3.5-5.1); SODIUM LEVEL 143.0 MMOL/L (136-145)
== END ==
LOC: M SFHCADAM 09:19
PROVIDERS: ATTEND Physician Assistant
DX: Z00.00 Encounter for general adult medical examination without abnormal findings (principal); I10 Essential (primary) hypertension; F03.A0 Unspecified dementia, mild, without behavioral disturbance, psychotic disturbance, mood disturbance, and anxiety; M81.0 Age-related osteoporosis without current pathological fracture; Z98.84 Bariatric surgery status; I34.0 Nonrheumatic mitral (valve) insufficiency; Z23 Encounter for immunization